=== PATIENT | male | born 1950 | race Hispanic/Latino ===

== ENCOUNTER 2019-06-12 17:17 | Emergency (ER) | payer OTHER ==
[2019-06-12 18:13] LABS: BASOPHILS % (AUTO) 0.3 % (0.0-5.0); EOSINOPHILS % (AUTO) 0.8 % (0.0-8.0); HEMATOCRIT 34.4 % (42-54); LYMPHOCYTES % (AUTO) 11.4 % (21.0-51.0); MEAN CORPUSCULAR HGB CONC 33.4 g/dL (32.0-36.0); MEAN CORPUSCULAR VOLUME 92.7 fL (79-99); MONOCYTES % (AUTO) 8.7 % (3.0-13.0); NEUTROPHILS % (AUTO) 78.3 % (40.0-77.0); PLATELET COUNT (AUTO) 272 K/uL (130-400); RED BLOOD CELL COUNT(AUTO) 3.71 MIL/uL (4.50-6.20); RED CELL DISTRIBUTION WIDTH 13.2 % (11.0-15.5); WHITE BLOOD COUNT (AUTO) 10.7 K/uL (4.8-10.8)
[2019-06-12 18:30] LABS: ALBUMIN 3.3 g/dL (3.5-5.0); BILIRUBIN,TOTAL 0.5 mg/dL (0.2-1.0); POTASSIUM 3.6 mmol/L (3.5-5.1); TOTAL PROTEIN, SERUM 6.8 g/dL (6.0-8.3)
[2019-06-12] MEDS ORDERED: SODIUM CHLORIDE 0.9% 1000ML 2,000 ML IV ONE (18:34)
[2019-06-12 18:37] LABS: APPEARANCE,URINE Cloudy (CLEAR); BILIRUBIN,URINE Negative (NEGATIVE); COLOR,URINE Yellow (YELLOW); GLUCOSE, URINE (UA) Negative (NEGATIVE); KETONES,URINE Negative (NEGATIVE); LEUKOCYTE ESTERASE ,URINE Trace (NEGATIVE); NITRATE,URINE Negative (NEGATIVE); OCCULT BLOOD,URINE Small (NEGATIVE); PROTEIN,URINE Negative (NEGATIVE)
[2019-06-12 18:43] LABS: CREATININE 0.9 mg/dL (0.5-1.5)
[2019-06-12 18:45] LABS: BACTERIA,URINE Rare /HPF (None Seen)
[2019-06-12 18:46] LABS: MUCUS,URINE Rare LPF (None Seen); SQUAMOUS EPITHELIAL CELL,UR 0-2 /HPF (0-2)
== END 2019-06-12 22:49 | disposition left against medical advice (07) ==
LOC: EDH 17:17
DX: I95.9 Hypotension, unspecified (principal); F03.90 Unspecified dementia, unspecified severity, without behavioral disturbance, psychotic disturbance, mood disturbance, and anxiety; Z88.0 Allergy status to penicillin; Z87.891 Personal history of nicotine dependence
CPT/HCPCS: 36415; 71045; 80053; 81001; 82550; 84484; 85025; 93005; 96360; 96361; 99285; J7030

== ENCOUNTER 2019-06-18 11:08 | Emergency (ER) | payer OTHER ==
[2019-06-18] MEDS ORDERED: SILVER SULFADIAZINE CREAM 50 GM TP ONE (11:44)
== END 2019-06-18 12:48 | disposition home or self-care (01) ==
LOC: EDH 11:08
DX: L89.893 Pressure ulcer of other site, stage 3 (principal); Z88.0 Allergy status to penicillin; Z72.0 Tobacco use

== ENCOUNTER 2019-07-13 14:36 | Inpatient (IN) | payer OTHER ==
[~2019-07-13] VITALS: Ht 157.5 cm; Wt 65.8 kg
[2019-07-13] MEDS: SODIUM CHLORIDE 0.9% 1000ML 1,000 ML IV SCH (03:40)
[2019-07-13] MEDS ORDERED: VANCOMYCIN 1GM+NS 250ML 250 ML IV SCH (15:37)
[2019-07-13] MEDS ORDERED: LEVOFLOXACIN 750 MG/D5W 150 ML 150 ML ONE (16:00)
[2019-07-13] MEDS ORDERED: SODIUM CHLORIDE 0.9% 1000ML 1,000 ML IV ONE (16:01)
[2019-07-13 16:14] LABS: BASOPHILS % (AUTO) 0.3 % (0.0-5.0); EOSINOPHILS % (AUTO) 0.4 % (0.0-8.0); LYMPHOCYTES % (AUTO) 8.8 % (21.0-51.0); MEAN CORPUSCULAR HGB CONC 32.9 g/dL (32.0-36.0); MEAN CORPUSCULAR VOLUME 94.3 fL (79-99); MONOCYTES % (AUTO) 6.9 % (3.0-13.0); NEUTROPHILS % (AUTO) 83.1 % (40.0-77.0); PLATELET COUNT (AUTO) 347 K/uL (130-400); RED BLOOD CELL COUNT(AUTO) 3.71 MIL/uL (4.50-6.20); RED CELL DISTRIBUTION WIDTH 12.7 % (11.0-15.5); WHITE BLOOD COUNT (AUTO) 14.3 K/uL (4.8-10.8)
[2019-07-13 16:28] LABS: INR 0.94 (0.85-1.15); PARTIAL THROMBOPLASTIN TIME 23.4 SEC (26.3-35.5); PROTHROMBIN TIME 10.2 SEC (9.6-11.6)
[2019-07-13 16:33] LABS: CREATININE 1.1 mg/dL (0.5-1.5); POTASSIUM 3.6 mmol/L (3.5-5.1)
[2019-07-13 16:37] LABS: BILIRUBIN,TOTAL 0.4 mg/dL (0.2-1.0); TOTAL PROTEIN, SERUM 6.6 g/dL (6.0-8.3)
[2019-07-13 16:38] LABS: B-TYPE NATRIURETIC PEPTIDE 41 pg/mL (0-100)
[2019-07-13] MEDS ORDERED: VANCOMYCIN 1GM+NS 250ML 250 ML IV ONE (16:56)
[2019-07-13] MEDS ORDERED: ONDANSETRON HCL 4 MG/2 ML VIAL IV PRN (19:00)
[2019-07-13] MEDS ORDERED: VANCOMYCIN PROTOCOL PER PHARMACY IV SCH (19:00)
[2019-07-13] MEDS ORDERED: NITROGLYCERIN 0.4 MG SL TAB SL PRN (19:00)
[2019-07-13] MEDS ORDERED: GLUCAGON 1MG KIT 1 MG ML IM PRN (19:00)
[2019-07-13] MEDS ORDERED: ACETAMINOPHEN 325 MG TAB PO PRN (19:00)
[2019-07-13] MEDS ORDERED: DEXTROSE 50%-WATER 50 ML DISP.SYRIN IV PRN (19:00)
[2019-07-13] MEDS ORDERED: SODIUM CHLORIDE 0.9% 1000ML 1,000 ML IV SCH (19:00)
[2019-07-13 19:26] LABS: APPEARANCE,URINE Clear (CLEAR); BILIRUBIN,URINE Negative (NEGATIVE); COLOR,URINE Yellow (YELLOW); GLUCOSE, URINE (UA) Negative (NEGATIVE); KETONES,URINE Negative (NEGATIVE); LEUKOCYTE ESTERASE ,URINE Negative (NEGATIVE); NITRATE,URINE Negative (NEGATIVE); OCCULT BLOOD,URINE Trace (NEGATIVE); PH,URINE 6.5 (5.0-8.0); PROTEIN,URINE Negative (NEGATIVE)
[2019-07-13 19:32] LABS: AMPHET/METH SCREEN,URINE NEGATIVE (NEGATIVE); BARBITURATE SCREEN, URINE NEGATIVE (NEGATIVE); BENZODIAZEPINES SCREEN,URINE NEGATIVE (NEGATIVE); CANNABINOID SCREEN,URINE NEGATIVE (NEGATIVE); COCAINE SCREEN,URINE NEGATIVE (NEGATIVE); OPIATE SCREEN,URINE NEGATIVE (NEGATIVE); PHENCYCLIDINE SCREEN,URINE NEGATIVE (NEGATIVE)
[2019-07-13 19:39] LABS: HEMOGLOBIN A1C 5.7 % (4.0-6.0)
[2019-07-13 19:43] LABS: BACTERIA,URINE Rare /HPF (None Seen); SQUAMOUS EPITHELIAL CELL,UR Rare /HPF (0-2); WBC,URINE 0-1 /HPF (0-1)
[2019-07-13 20:10] LABS: CREATINE KINASE, TOTAL 139 U/L (21-232); MYOGLOBIN 153 ng/mL (10-92); TROPONIN I < 0.04 ng/mL (0.00-0.06)
[2019-07-13] MEDS ORDERED: FAMOTIDINE/PF 20 MG/2 ML VIAL IV ONE (21:09)
[2019-07-13] MEDS: POTASSIUM CHLORIDE 20 MEQ ERTAB PO SCH (23:45)
[2019-07-14] MEDS ORDERED: POTASSIUM CHLORIDE 10% ELIXIR 20 MEQ/15 ML UDCUP ONE (02:55)
[2019-07-14 03:40] VITALS: BP 141/69
[2019-07-14] MEDS: SODIUM CHLORIDE 0.9% 1000ML 1,000 ML IV SCH (04:47)
[2019-07-14] MEDS: INSULIN HUMULIN R 100 UNIT/ML 3ML SQ SCH ×2 (06:25→21:00)
[2019-07-14] MEDS: VANCOMYCIN 1GM+NS 250ML 250 ML IV SCH ×2 (06:25→22:57)
--- NOTE | 2019-07-14 06:45 | NUR ---
PATIENT UPDATE Admitted a 68 yr old male for left leg ulcer. Pt apparently found by the police dept wandering at an [employer] store, reported missing by , brought over to ER and made aware. Wound cultured, antibiotics started . Pt very confused and disoriented, oriented x 1 only, reoriented x 3. IVF of NS at 100 cc/hr, at the bedside. Blood sugar was 58, orange juice given. Pt a high risk for fall, bed alarm on.
[2019-07-14 07:18] LABS: ALBUMIN 2.5 g/dL (3.5-5.0); BILIRUBIN,TOTAL 0.3 mg/dL (0.2-1.0); MAGNESIUM 1.6 mg/dL (1.80-2.40); TOTAL PROTEIN, SERUM 5.9 g/dL (6.0-8.3)
[2019-07-14 07:35] LABS: HEMATOCRIT 34.2 % (42-54); MEAN CORPUSCULAR HEMOGLOBIN 31.8 pg (27.0-33.0); MEAN CORPUSCULAR HGB CONC 33.3 g/dL (32.0-36.0); MEAN CORPUSCULAR VOLUME 95.3 fL (79-99); PLATELET COUNT (AUTO) 284 K/uL (130-400); RED BLOOD CELL COUNT(AUTO) 3.59 MIL/uL (4.50-6.20); RED CELL DISTRIBUTION WIDTH 12.9 % (11.0-15.5); WHITE BLOOD COUNT (AUTO) 10.9 K/uL (4.8-10.8)
[2019-07-14 08:00] VITALS: BP 133/57
--- NOTE | 2019-07-14 08:00 | NUR ---
AM SHIFT ASSESSMENT. BED ALARM ON PT. TRYING TO GET OUT OF BED, PER STATES HE IS VERY ACTIVWE AT HIME AND DOESN'T SIT STILL. DRESSING N PLACE TO LT. LOWER LEG. HAS AN ULCER AND STATES SHE CLEANS DAILY.
[2019-07-14 08:26] LABS: BASOPHILS % (MANUAL) 1 % (0-2); LYMPHOCYTES % (MANUAL) 7 % (22-44); MAN.DIFF COMMENT-IMPRESSION MANUAL DIFFERENTIAL; MONOCYTES % (MANUAL) 8 % (2-9); PLATELET MORPHOLOGY COMMENT ADEQUATE; SEGMENTED NEUTROPHILS % 84 % (40-70)
[2019-07-14] MEDS: LEVOFLOXACIN 500 MG/D5W 100 ML 100 ML IV SCH (09:52)
[2019-07-14] MEDS: FAMOTIDINE/PF 20 MG/2 ML VIAL IV SCH (09:52)
[2019-07-14] MEDS: ENOXAPARIN SODIUM 30 MG/0.3 ML SQ SCH (09:54)
[2019-07-14 12:00] VITALS: BP 137/48
[2019-07-14 16:00] VITALS: BP 126/55
--- NOTE | 2019-07-14 16:16 | NUR ---
RD NOTIFICATION LEFT LEG ULCER NOTED. PT HAS DIFFICULTIES CHEWING FOOD DUE TO MISSING TEETH, PER . LABS AND MEDS REVIEWED. PO INTAKE 50-75%. LBM: 07/[address] RECOMMENDS TO ADD MECHANICAL SOFT/CHOPPED DUE TO MISSING TEETH ADD SAEID AND PROMOD BID - AID WOUND HEALING OFFER ORAL SUPPLEMENTS NEEDED, ENSURE RECOMMEND 500MG VITAMIN C BID AND 220MG ZINC SULFATE QD FOR 14 DAYS - AID WOUND HEALING Addendum: 07/14/19 at [address] Amended: Links added.
--- NOTE | 2019-07-14 18:38 | NUR ---
[facility] CONSULT Patient assessed as ordered. Patient with wound to left lower leg/ankle anterior. [facility] recommendations submitted. Addendum: 07/14/19 at 1839 by KARTHIK CHAVEZ RN/ Amended: Links added.
--- NOTE | 2019-07-14 19:00 | NUR ---
PODIATRY IN TO SEE PT. CONTINUE WITH JUANA. THINKS HE PROBABLY NEEDS AMPUTATION.
[2019-07-14 20:00] VITALS: BP 128/52
[2019-07-14] MEDS: POTASSIUM CHLORIDE 20 MEQ ERTAB PO SCH (23:45)
[2019-07-15] VITALS: BP 134/66
[2019-07-15] MEDS: SODIUM CHLORIDE 0.9% 1000ML 1,000 ML IV SCH ×3 (00:47→20:47)
[2019-07-15 03:46] VITALS: BP 134/57
[2019-07-15] MEDS ORDERED: VANCOMYCIN 1GM+NS 250ML 250 ML IV SCH (04:00)
[2019-07-15] MEDS ORDERED: HONEY 1 APPL/ML TUBE TP SCH ×2 (04:45→20:15)
[2019-07-15] MEDS: INSULIN HUMULIN R 100 UNIT/ML 3ML SQ SCH ×4 (06:36→21:00)
[2019-07-15 08:00] VITALS: BP 151/54
--- NOTE | 2019-07-15 09:30 | NUR ---
CLEANED ULCER ON LT LOWER LG. APPLIED MEDIHONEY AND COVERED..
[2019-07-15] MEDS: VANCOMYCIN 1GM+NS 250ML 250 ML IV SCH ×2 (10:09→23:09)
[2019-07-15] MEDS: LEVOFLOXACIN 500 MG/D5W 100 ML 100 ML IV SCH (10:11)
[2019-07-15] MEDS: FAMOTIDINE/PF 20 MG/2 ML VIAL IV SCH (10:11)
[2019-07-15] MEDS: ENOXAPARIN SODIUM 30 MG/0.3 ML SQ SCH (10:12)
[2019-07-15] MEDS ORDERED: VANCOMYCIN PROTOCOL PER PHARMACY IV SCH (11:00)
[2019-07-15 12:00] VITALS: BP 145/72
--- NOTE | 2019-07-15 15:27 | NUR ---
HAVE HAD TO RESTART IV TWICE TODAY, KEEPS PULLING THEM OUT.
[2019-07-15 16:00] VITALS: BP 138/67
--- NOTE | 2019-07-15 16:08 | NUR ---
CM NOTE MEET WITH PATIENT IN ROOM. HISTORY OF DEMENTIA WITH INCREASE IN CONFUSION. PER LIFE PARTNER AT BEDSIDE, HAVE BEEN LIVING TOGETHER A COUPLE FOR MORE THAN 15 YEARS. PER LIFE PARTNER, PATIENT IS INDEPENDENT WITH ADLS, LIVES WITH SPOUSE AND HIS 1 ADULT SON, NO DME IN USE, NO PROVIDER OR HOME HEALTH IN USE, AND FEELS PATIENT CAN BE RETURNED HOME AFTER HOSPITAL DISCHARGE. PER LIFE PARTNER, PATIENT DOES NOT HAVE SOCIAL SECURITY NUMBER. SELF REFERRAL PACKET GIVEN TO LIFE PARTNER, VERBALIZED UNDERSTANDING OF INFORMATION. PER LIFE PARTNER, WILLING TO DO WOUND CARE AT HOME IF RECOMMENDED. CONVERSATIONS BETWEEN LIFE PARTNER AND I DISCUSSED WITH PRIMARY NURSE, AFRICA FOSS. PENDING MD CONSULT PENDING Addendum: 07/16/19 at 1612 by CHRISTIANO VILLARREAL RN CM Amended: Links added.
--- NOTE | 2019-07-15 16:57 | NUR ---
3RD. IV START TODAY. CONFUSED. AND REALLY DOESN'T UNDERSTAND HE IS IN HOSPITAL.
[2019-07-15 20:00] VITALS: BP 131/63
[2019-07-15] MEDS ORDERED: LORAZEPAM 2 MG/ML 1 ML VIAL IVP ONE (20:00)
[2019-07-15] MEDS ORDERED: LORAZEPAM 2 MG/ML 1 ML VIAL ONE (20:04)
--- NOTE | 2019-07-15 20:37 | NUR ---
PERSISTENT AGITATION Pt continues to be restless in the bed, still without any iv access. KATE Escamilla WHEEL SHOP SUPERVISOR called for orders, Lorazepam 0.5 mg given slow iv push for anxiety after a piv was started on the left wrist. Pt now with an assigned 1:1, pulled piv out 3x fr the previous shift. Pending consult with Dr. Kemp regarding the lt ankle ulceration.
[2019-07-15] MEDS: POTASSIUM CHLORIDE 20 MEQ ERTAB PO SCH (22:00)
--- NOTE | 2019-07-15 23:00 | NUR ---
MD VISIT Dr. Kemp here on rounds, updated with the pt's overall status, chart reviewed. Left ankle ulcer seen, stated that it's a chronic ulcer. Pt was seen in [facility] [place] by Dr. Trejo in April. No new orders made. Vanco trough at 4.3, result faxed to Phamacy , continues with the 1gm ivpb q 12 hrs for now, will follow up with Pharmacy in the am.
[2019-07-16] VITALS (7 sets, daily range): BP systolic 100–147; BP diastolic 54–80
[2019-07-16] MEDS: SODIUM CHLORIDE 0.9% 1000ML 1,000 ML IV SCH ×3 (00:12→12:57)
[2019-07-16] MEDS ORDERED: COMPOUND IV REFRIGERATED 1 EACH IVSOLN MISC PRN (06:30)
[2019-07-16] MEDS: INSULIN HUMULIN R 100 UNIT/ML 3ML SQ SCH ×3 (07:30→21:00)
[2019-07-16] MEDS: FAMOTIDINE/PF 20 MG/2 ML VIAL IV SCH (10:50)
[2019-07-16] MEDS: LEVOFLOXACIN 500 MG/D5W 100 ML 100 ML IV SCH (10:50)
[2019-07-16] MEDS: VANCOMYCIN 1.25 GM in SODIUM CHLORIDE 0.9% 250 ML IV SCH ×2 (10:50→20:42)
[2019-07-16] MEDS: HONEY 1 APPL/ML TUBE TP SCH (10:51)
[2019-07-16] MEDS: ENOXAPARIN SODIUM 30 MG/0.3 ML SQ SCH (10:52)
[2019-07-16] MEDS: FLUCONAZOLE 100 MG TAB PO SCH (12:54)
[2019-07-16] MEDS: POTASSIUM CHLORIDE 20 MEQ ERTAB PO SCH (19:28)
[2019-07-16] MEDS: DIPHENHYDRAMINE HCL 25 MG CAPSULE PO PRN (20:42)
[2019-07-17 03:00] VITALS: BP 139/65
[2019-07-17] MEDS: DIPHENHYDRAMINE HCL 25 MG CAPSULE PO PRN ×2 (05:25→21:40)
[2019-07-17 06:07] LABS: BASOPHILS % (AUTO) 0.4 % (0.0-5.0); EOSINOPHILS % (AUTO) 0.9 % (0.0-8.0); HEMATOCRIT 37.5 % (42-54); LYMPHOCYTES % (AUTO) 11.6 % (21.0-51.0); MEAN CORPUSCULAR HEMOGLOBIN 31.4 pg (27.0-33.0); MEAN CORPUSCULAR HGB CONC 33.3 g/dL (32.0-36.0); MEAN CORPUSCULAR VOLUME 94.2 fL (79-99); NEUTROPHILS % (AUTO) 76.7 % (40.0-77.0); PLATELET COUNT (AUTO) 309 K/uL (130-400); RED BLOOD CELL COUNT(AUTO) 3.98 MIL/uL (4.50-6.20); RED CELL DISTRIBUTION WIDTH 12.1 % (11.0-15.5); WHITE BLOOD COUNT (AUTO) 8.5 K/uL (4.8-10.8)
[2019-07-17] MEDS: INSULIN HUMULIN R 100 UNIT/ML 3ML SQ SCH ×4 (06:15→20:53)
[2019-07-17 06:33] LABS: ALBUMIN 2.6 g/dL (3.5-5.0); BILIRUBIN,TOTAL 0.4 mg/dL (0.2-1.0); CREATININE 0.9 mg/dL (0.5-1.5); POTASSIUM 3.4 mmol/L (3.5-5.1); TOTAL PROTEIN, SERUM 6.5 g/dL (6.0-8.3)
[2019-07-17 08:00] VITALS: BP 110/55
--- NOTE | 2019-07-17 11:12 | NUR ---
AMPUTATION Phoned as discussed with Dr. Carrasquillo. Stated patient does want the amputation and she agrees as well. Dr. Carrasquillo aware.
[2019-07-17 12:00] VITALS: BP 88/57
[2019-07-17] MEDS: FAMOTIDINE/PF 20 MG/2 ML VIAL IV SCH (12:21)
[2019-07-17] MEDS: LEVOFLOXACIN 500 MG/D5W 100 ML 100 ML IV SCH (12:21)
[2019-07-17] MEDS: VANCOMYCIN 1.25 GM in SODIUM CHLORIDE 0.9% 250 ML IV SCH ×2 (12:22→22:46)
[2019-07-17] MEDS: ACETAMINOPHEN 325 MG TAB PO PRN ×2 (12:23→15:15)
[2019-07-17] MEDS: FLUCONAZOLE 100 MG TAB PO SCH (12:23)
[2019-07-17] MEDS: HONEY 1 APPL/ML TUBE TP SCH (12:25)
[2019-07-17] MEDS: ENOXAPARIN SODIUM 30 MG/0.3 ML SQ SCH (12:25)
[2019-07-17] MEDS: SODIUM CHLORIDE 0.9% 1000ML 1,000 ML IV SCH ×3 (12:26→22:47)
[2019-07-17 16:00] VITALS: BP 98/55
[2019-07-17 21:46] VITALS: BP 95/66
[2019-07-17 23:49] VITALS: BP 106/68
[2019-07-18 03:57] VITALS: BP 110/71
[2019-07-18 05:18] LABS: BASOPHILS % (AUTO) 0.3 % (0.0-5.0); EOSINOPHILS % (AUTO) 1.2 % (0.0-8.0); HEMATOCRIT 35.3 % (42-54); LYMPHOCYTES % (AUTO) 13.4 % (21.0-51.0); MEAN CORPUSCULAR HEMOGLOBIN 31.1 pg (27.0-33.0); MEAN CORPUSCULAR HGB CONC 33.4 g/dL (32.0-36.0); MEAN CORPUSCULAR VOLUME 93.1 fL (79-99); MONOCYTES % (AUTO) 10.1 % (3.0-13.0); NEUTROPHILS % (AUTO) 74.7 % (40.0-77.0); PLATELET COUNT (AUTO) 320 K/uL (130-400); RED BLOOD CELL COUNT(AUTO) 3.79 MIL/uL (4.50-6.20); WHITE BLOOD COUNT (AUTO) 8.9 K/uL (4.8-10.8)
[2019-07-18 05:35] LABS: ALBUMIN 2.5 g/dL (3.5-5.0); BILIRUBIN,TOTAL 0.5 mg/dL (0.2-1.0); CREATININE 0.9 mg/dL (0.5-1.5); POTASSIUM 3.1 mmol/L (3.5-5.1); TOTAL PROTEIN, SERUM 6.3 g/dL (6.0-8.3)
[2019-07-18] MEDS: INSULIN HUMULIN R 100 UNIT/ML 3ML SQ SCH ×4 (06:53→21:00)
[2019-07-18 08:00] VITALS: BP 97/69
[2019-07-18] MEDS: SODIUM CHLORIDE 0.9% 1000ML 1,000 ML IV SCH ×2 (08:47→18:10)
[2019-07-18] MEDS: HONEY 1 APPL/ML TUBE TP SCH (09:00)
[2019-07-18] MEDS: FAMOTIDINE/PF 20 MG/2 ML VIAL IV SCH (09:13)
[2019-07-18] MEDS: LEVOFLOXACIN 500 MG/D5W 100 ML 100 ML IV SCH (09:14)
[2019-07-18] MEDS: VANCOMYCIN 1.25 GM in SODIUM CHLORIDE 0.9% 250 ML IV SCH ×2 (09:14→20:29)
[2019-07-18] MEDS: ENOXAPARIN SODIUM 30 MG/0.3 ML SQ SCH (09:14)
--- NOTE | 2019-07-18 09:45 | NUR ---
DISCUSSED PLAN OF CARE WITH STAFF ADVISED THAT AN AMPUTATION WAS PLANNED FOR TOMORROW OR THE NEXT DAY CM TO FOLLOW FOR AFTERCARE NEEDS Addendum: 07/18/19 at 1437 by TREVA BILL RN CM Amended: Links added.
[2019-07-18 11:38] VITALS: BP 91/59
[2019-07-18] MEDS: FLUCONAZOLE 100 MG TAB PO SCH (12:29)
[2019-07-18] MEDS ORDERED: POTASSIUM CHLORIDE 20MEQ/100ML 100 ML IV PRN (13:00)
[2019-07-18] MEDS ORDERED: LIDOCAINE HCL-MPF 1% 2ML VIAL IV PRN (13:00)
--- NOTE | 2019-07-18 13:55 | NUR ---
DR GALAN/CONSULT PAGED AND SPOKE TO DR GALAN REGARDING GEN SURGERY CONSULT. STATED SHE WILL LOOK AT HIS CHART
[2019-07-18 16:00] VITALS: BP 91/65
[2019-07-18 20:00] VITALS: BP 96/71
[2019-07-18 23:22] VITALS: BP 105/64
[2019-07-19] MEDS: DIPHENHYDRAMINE HCL 25 MG CAPSULE PO PRN ×2 (00:44→22:55)
[2019-07-19 03:25] VITALS: BP 98/65
[2019-07-19 05:36] LABS: BASOPHILS % (AUTO) 0.3 % (0.0-5.0); EOSINOPHILS % (AUTO) 1.3 % (0.0-8.0); HEMATOCRIT 37.7 % (42-54); LYMPHOCYTES % (AUTO) 12.7 % (21.0-51.0); MEAN CORPUSCULAR HEMOGLOBIN 30.5 pg (27.0-33.0); MEAN CORPUSCULAR HGB CONC 32.9 g/dL (32.0-36.0); MEAN CORPUSCULAR VOLUME 92.9 fL (79-99); NEUTROPHILS % (AUTO) 76.2 % (40.0-77.0); PLATELET COUNT (AUTO) 313 K/uL (130-400); RED BLOOD CELL COUNT(AUTO) 4.06 MIL/uL (4.50-6.20); RED CELL DISTRIBUTION WIDTH 12.1 % (11.0-15.5); WHITE BLOOD COUNT (AUTO) 10.2 K/uL (4.8-10.8)
[2019-07-19 05:49] LABS: ALBUMIN 2.6 g/dL (3.5-5.0); BILIRUBIN,TOTAL 0.5 mg/dL (0.2-1.0); CREATININE 0.9 mg/dL (0.5-1.5); POTASSIUM 3.3 mmol/L (3.5-5.1); TOTAL PROTEIN, SERUM 6.8 g/dL (6.0-8.3)
[2019-07-19] MEDS: INSULIN HUMULIN R 100 UNIT/ML 3ML SQ SCH ×4 (06:55→21:00)
[2019-07-19] MEDS: FAMOTIDINE/PF 20 MG/2 ML VIAL IV SCH (10:08)
[2019-07-19] MEDS: LEVOFLOXACIN 500 MG/D5W 100 ML 100 ML IV SCH (10:08)
[2019-07-19] MEDS: VANCOMYCIN 1.25 GM in SODIUM CHLORIDE 0.9% 250 ML IV SCH (10:08)
[2019-07-19] MEDS: ENOXAPARIN SODIUM 30 MG/0.3 ML SQ SCH (10:09)
[2019-07-19] MEDS: HONEY 1 APPL/ML TUBE TP SCH (10:18)
[2019-07-19] MEDS: SODIUM CHLORIDE 0.9% 1000ML 1,000 ML IV SCH ×2 (12:28→14:47)
[2019-07-19] MEDS: FLUCONAZOLE 100 MG TAB PO SCH (12:28)
[2019-07-19 20:00] VITALS: BP 104/68
[2019-07-19] MEDS: ATORVASTATIN CALCIUM 40 MG TABLET PO SCH (20:47)
[2019-07-19] MEDS: VANCOMYCIN 1GM+NS 250ML 250 ML IV SCH (21:44)
[2019-07-20] VITALS: BP 133/61
[2019-07-20] MEDS: SODIUM CHLORIDE 0.9% 1000ML 1,000 ML IV SCH ×3 (00:47→20:47)
[2019-07-20 04:00] VITALS: BP 116/59
[2019-07-20 05:05] LABS: BASOPHILS % (AUTO) 0.3 % (0.0-5.0); EOSINOPHILS % (AUTO) 0.8 % (0.0-8.0); HEMATOCRIT 37.6 % (42-54); LYMPHOCYTES % (AUTO) 11.5 % (21.0-51.0); MEAN CORPUSCULAR HEMOGLOBIN 31.1 pg (27.0-33.0); MEAN CORPUSCULAR HGB CONC 33.5 g/dL (32.0-36.0); MEAN CORPUSCULAR VOLUME 92.8 fL (79-99); MONOCYTES % (AUTO) 8.7 % (3.0-13.0); NEUTROPHILS % (AUTO) 78.1 % (40.0-77.0); PLATELET COUNT (AUTO) 325 K/uL (130-400); RED BLOOD CELL COUNT(AUTO) 4.05 MIL/uL (4.50-6.20); WHITE BLOOD COUNT (AUTO) 10.8 K/uL (4.8-10.8)
[2019-07-20 05:31] LABS: MAGNESIUM 1.8 mg/dL (1.80-2.40); POTASSIUM 3.3 mmol/L (3.5-5.1)
[2019-07-20] MEDS: INSULIN HUMULIN R 100 UNIT/ML 3ML SQ SCH ×4 (06:22→21:00)
[2019-07-20] MEDS: MAGNESIUM 2GM PREMIX 50ML 50 ML IV PRN (07:11)
[2019-07-20 07:30] VITALS: BP 111/52
[2019-07-20] MEDS: HONEY 1 APPL/ML TUBE TP SCH (09:00)
[2019-07-20] MEDS: VANCOMYCIN 1GM+NS 250ML 250 ML IV SCH ×2 (10:12→21:00)
[2019-07-20] MEDS: LEVOFLOXACIN 500 MG/D5W 100 ML 100 ML IV SCH (10:12)
[2019-07-20] MEDS: FAMOTIDINE/PF 20 MG/2 ML VIAL IV SCH (10:12)
[2019-07-20] MEDS: ASPIRIN 81MG TAB.CHEW PO SCH (10:13)
[2019-07-20] MEDS: POTASSIUM CHLORIDE 20 MEQ ERTAB PO PRN ×2 (10:13→21:00)
[2019-07-20] MEDS: ENOXAPARIN SODIUM 30 MG/0.3 ML SQ SCH (10:14)
[2019-07-20 11:00] VITALS: BP 108/54
[2019-07-20] MEDS: FLUCONAZOLE 100 MG TAB PO SCH (12:43)
--- NOTE | 2019-07-20 13:30 | NUR ---
DR PAT STEWART CAME IN TO SEE PATIENT, STATED THAT HE WILL PERSONALLY CALL DR GALAN AFTER HE HAS 2D ECHO RESULTS.
--- NOTE | 2019-07-20 13:46 | NUR ---
RD Follow up Pt is tolerating current diet. MD will evaluate for possible amputation, family agreed. General surgery has been consulted. Left leg open wound, ulcer noted. Labs and meds reviewed. Po intake 75-100%. RD recommends 500mg Vitamin C BID - aid wound healing Recommend 220mg Zinc sulfate QD for 14 days - aid wound healing Monitor po intake and tolerance Encourage pt to consume oral supplements - aid wound healing
[2019-07-20 20:00] VITALS: BP 91/60
[2019-07-20] MEDS: ATORVASTATIN CALCIUM 40 MG TABLET PO SCH (21:00)
[2019-07-20 23:00] VITALS: BP 102/70
[2019-07-21] MEDS: DIPHENHYDRAMINE HCL 25 MG CAPSULE PO PRN (00:40)
[2019-07-21] MEDS ORDERED: LORAZEPAM 2 MG/ML 1 ML VIAL ONE (02:43)
[2019-07-21] MEDS ORDERED: LORAZEPAM 2 MG/ML 1 ML VIAL IVP PRN (02:45)
[2019-07-21 03:00] VITALS: BP 91/58
[2019-07-21] MEDS: INSULIN HUMULIN R 100 UNIT/ML 3ML SQ SCH ×4 (06:18→21:00)
[2019-07-21] MEDS: SODIUM CHLORIDE 0.9% 1000ML 1,000 ML IV SCH ×2 (06:19→16:47)
[2019-07-21 06:21] LABS: POTASSIUM 3.7 mmol/L (3.5-5.1)
[2019-07-21] MEDS: LEVOFLOXACIN 500 MG/D5W 100 ML 100 ML IV SCH (09:11)
[2019-07-21] MEDS: FAMOTIDINE/PF 20 MG/2 ML VIAL IV SCH (09:11)
[2019-07-21] MEDS: ENOXAPARIN SODIUM 30 MG/0.3 ML SQ SCH (09:12)
[2019-07-21] MEDS: ASPIRIN 81MG TAB.CHEW PO SCH (09:12)
[2019-07-21] MEDS: HONEY 1 APPL/ML TUBE TP SCH (09:13)
[2019-07-21] MEDS: VANCOMYCIN 1GM+NS 250ML 250 ML IV SCH ×2 (10:40→22:05)
[2019-07-21] MEDS: FLUCONAZOLE 100 MG TAB PO SCH (12:37)
--- NOTE | 2019-07-21 18:54 | NUR ---
notified dr elena of the consult.
[2019-07-21 20:00] VITALS: BP 97/49
[2019-07-21] MEDS: MEMANTINE HCL 5 MG TABLET PO SCH (22:04)
[2019-07-21] MEDS: RISPERIDONE 0.5 MG TABLET PO SCH (22:05)
[2019-07-21] MEDS: ATORVASTATIN CALCIUM 40 MG TABLET PO SCH (22:05)
[2019-07-21 23:27] VITALS: BP 148/63
[2019-07-22] MEDS: DIPHENHYDRAMINE HCL 25 MG CAPSULE PO PRN (00:55)
--- NOTE | 2019-07-22 01:11 | NUR ---
PAGED ABENA NÚÑEZ PAGED D/T PATIENT WITH INCREASED AGITATION AND AGGRESSIVENESS. BOTTLED BEVERAGE INSPECTOR ORDERED A ONE TIME DOSE OF LORAZEPAM-SEE MAR ORDERS. ORDERS ENTERED INTO [email or web address].
[2019-07-22] MEDS ORDERED: LORAZEPAM 2 MG/ML 1 ML VIAL IVP PRN (01:30)
[2019-07-22] MEDS: SODIUM CHLORIDE 0.9% 1000ML 1,000 ML IV SCH (02:21)
[2019-07-22 04:00] VITALS: BP 106/51
[2019-07-22] MEDS: INSULIN HUMULIN R 100 UNIT/ML 3ML SQ SCH ×3 (05:48→21:00)
[2019-07-22 08:00] VITALS: BP 111/73
--- NOTE | 2019-07-22 09:02 | NUR ---
WOUND CARE LEFT ANKLE WOUND CARE PROVIDE PER ORDER. 4X4 GAUZE PADS, WRAPPED WITH KERLIX. PATIENT ASLEEP DURING TREATMENT. NO DISCOMFORT OBSERVED. SITTER AT BEDSIDE, BED LOCKED IN LOWEST POSITION.
[2019-07-22] MEDS: VANCOMYCIN 1GM+NS 250ML 250 ML IV SCH ×2 (09:33→21:18)
[2019-07-22] MEDS: LEVOFLOXACIN 500 MG/D5W 100 ML 100 ML IV SCH (09:33)
[2019-07-22] MEDS: FLUOXETINE HCL 10 MG CAPSULE PO SCH (09:34)
[2019-07-22] MEDS: RISPERIDONE 0.5 MG TABLET PO SCH ×2 (09:34→21:18)
[2019-07-22] MEDS: FAMOTIDINE/PF 20 MG/2 ML VIAL IV SCH (09:34)
[2019-07-22] MEDS: ASPIRIN 81MG TAB.CHEW PO SCH (09:34)
[2019-07-22] MEDS: ENOXAPARIN SODIUM 30 MG/0.3 ML SQ SCH (09:35)
[2019-07-22] MEDS: HONEY 1 APPL/ML TUBE TP SCH (10:05)
[2019-07-22 10:24] LABS: THYROID STIMULATING HORMONE 2.11 uIU/mL (0.36-3.74)
[2019-07-22 12:00] VITALS: BP 95/55
[2019-07-22] MEDS: FLUCONAZOLE 100 MG TAB PO SCH (12:46)
[2019-07-22 17:23] VITALS: BP 119/67
[2019-07-22 20:00] VITALS: BP_SYST 161; BP_SYST 98; BP_DIAS 69; BP_DIAS 70
[2019-07-22] MEDS: MEMANTINE HCL 5 MG TABLET PO SCH (21:18)
[2019-07-22] MEDS: ATORVASTATIN CALCIUM 40 MG TABLET PO SCH (21:18)
[2019-07-23] VITALS (7 sets, daily range): BP systolic 81–125; BP diastolic 60–74
[2019-07-23 05:03] LABS: BASOPHILS % (AUTO) 0.3 % (0.0-5.0); EOSINOPHILS % (AUTO) 0.7 % (0.0-8.0); HEMATOCRIT 39.6 % (42-54); LYMPHOCYTES % (AUTO) 11.2 % (21.0-51.0); MEAN CORPUSCULAR HEMOGLOBIN 30.3 pg (27.0-33.0); MEAN CORPUSCULAR HGB CONC 32.1 g/dL (32.0-36.0); MEAN CORPUSCULAR VOLUME 94.5 fL (79-99); MONOCYTES % (AUTO) 8.5 % (3.0-13.0); NEUTROPHILS % (AUTO) 78.9 % (40.0-77.0); PLATELET COUNT (AUTO) 283 K/uL (130-400); RED BLOOD CELL COUNT(AUTO) 4.19 MIL/uL (4.50-6.20); WHITE BLOOD COUNT (AUTO) 9.7 K/uL (4.8-10.8)
[2019-07-23 05:15] LABS: CREATININE 0.9 mg/dL (0.5-1.5); POTASSIUM 3.6 mmol/L (3.5-5.1)
[2019-07-23] MEDS: INSULIN HUMULIN R 100 UNIT/ML 3ML SQ SCH ×4 (06:08→21:00)
[2019-07-23] MEDS: HONEY 1 APPL/ML TUBE TP SCH (06:50)
[2019-07-23] MEDS: VANCOMYCIN 1GM+NS 250ML 250 ML IV SCH (09:00)
[2019-07-23] MEDS: LEVOFLOXACIN 500 MG/D5W 100 ML 100 ML IV SCH (11:29)
[2019-07-23] MEDS: RISPERIDONE 1 MG TABLET PO SCH (11:30)
[2019-07-23] MEDS: FAMOTIDINE/PF 20 MG/2 ML VIAL IV SCH (11:30)
[2019-07-23] MEDS: ENOXAPARIN SODIUM 30 MG/0.3 ML SQ SCH (11:30)
[2019-07-23] MEDS: ASPIRIN 81MG TAB.CHEW PO SCH (11:31)
[2019-07-23] MEDS: FLUOXETINE HCL 10 MG CAPSULE PO SCH (11:31)
[2019-07-23] MEDS: FLUCONAZOLE 100 MG TAB PO SCH (12:30)
[2019-07-23] MEDS: LORAZEPAM 2 MG/ML 1 ML VIAL IM PRN (12:37)
[2019-07-23] MEDS ORDERED: PHARMACY COMMUNICATION MISC SCH (15:30)
[2019-07-23] MEDS: CHLORDIAZEPOXIDE HCL 25 MG CAP PO SCH ×2 (16:58→22:52)
[2019-07-23] MEDS ORDERED: TRAMADOL HCL 50 MG TABLET PO PRN (18:15)
[2019-07-23] MEDS: ATORVASTATIN CALCIUM 40 MG TABLET PO SCH (22:52)
[2019-07-23] MEDS: RISPERIDONE 0.5 MG TABLET PO SCH (22:52)
[2019-07-23] MEDS: MEMANTINE HCL 5 MG TABLET PO SCH (22:52)
[2019-07-24 04:24] VITALS: BP 121/73
[2019-07-24] MEDS: INSULIN HUMULIN R 100 UNIT/ML 3ML SQ SCH ×4 (06:56→21:00)
[2019-07-24 08:00] VITALS: BP 130/67
[2019-07-24] MEDS: RISPERIDONE 1 MG TABLET PO SCH (08:44)
[2019-07-24] MEDS: THIAMINE HCL 100 MG TABLET PO SCH (08:44)
[2019-07-24] MEDS: CHLORDIAZEPOXIDE HCL 25 MG CAP PO SCH ×3 (08:44→20:10)
[2019-07-24] MEDS: ASPIRIN 81MG TAB.CHEW PO SCH (08:44)
[2019-07-24] MEDS: FAMOTIDINE/PF 20 MG/2 ML VIAL IV SCH (08:45)
[2019-07-24] MEDS: FOLIC ACID 1 MG TABLET PO SCH (08:45)
[2019-07-24] MEDS: FLUOXETINE HCL 10 MG CAPSULE PO SCH (08:45)
[2019-07-24] MEDS: ENOXAPARIN SODIUM 30 MG/0.3 ML SQ SCH (08:46)
[2019-07-24] MEDS: HONEY 1 APPL/ML TUBE TP SCH (08:46)
[2019-07-24 11:00] VITALS: BP 105/71
[2019-07-24] MEDS: FLUCONAZOLE 100 MG TAB PO SCH (13:06)
[2019-07-24 18:35] VITALS: BP 140/68
[2019-07-24 20:00] VITALS: BP 115/75
[2019-07-24] MEDS: MEMANTINE HCL 5 MG TABLET PO SCH (20:10)
[2019-07-24] MEDS: RISPERIDONE 0.5 MG TABLET PO SCH (20:10)
[2019-07-24] MEDS: ATORVASTATIN CALCIUM 40 MG TABLET PO SCH (20:10)
[2019-07-24] MEDS: VANCOMYCIN 1GM+NS 250ML 250 ML IV SCH (20:11)
[2019-07-25] VITALS (7 sets, daily range): BP systolic 83–156; BP diastolic 65–93
[2019-07-25] MEDS: LORAZEPAM 2 MG/ML 1 ML VIAL IM PRN ×2 (00:46→22:51)
--- NOTE | 2019-07-25 00:51 | NUR ---
tachycardia Informed division human resources manager hospitalist KATE KRAFT that patients heart rate was 124, BP 112/73 patient states that he feels fine just wanting to get out of here. call or contact centre coach hospitalist stated to give ativan that is ordered for patient, and that he would place orders for some am labs.
[2019-07-25] MEDS: ACETAMINOPHEN 325 MG TAB PO PRN (04:27)
[2019-07-25] MEDS: INSULIN HUMULIN R 100 UNIT/ML 3ML SQ SCH ×4 (05:56→20:06)
[2019-07-25 06:07] LABS: BASOPHILS % (AUTO) 0.4 % (0.0-5.0); EOSINOPHILS % (AUTO) 0.2 % (0.0-8.0); HEMATOCRIT 39.7 % (42-54); MEAN CORPUSCULAR HEMOGLOBIN 30.8 pg (27.0-33.0); MEAN CORPUSCULAR VOLUME 93.2 fL (79-99); MONOCYTES % (AUTO) 7.4 % (3.0-13.0); NEUTROPHILS % (AUTO) 85.5 % (40.0-77.0); PLATELET COUNT (AUTO) 380 K/uL (130-400); RED BLOOD CELL COUNT(AUTO) 4.26 MIL/uL (4.50-6.20); RED CELL DISTRIBUTION WIDTH 11.9 % (11.0-15.5); WHITE BLOOD COUNT (AUTO) 13.1 K/uL (4.8-10.8)
[2019-07-25 06:21] LABS: CREATININE 1.1 mg/dL (0.5-1.5); POTASSIUM 3.6 mmol/L (3.5-5.1)
[2019-07-25] MEDS: CHLORDIAZEPOXIDE HCL 25 MG CAP PO SCH (09:00)
[2019-07-25] MEDS: HONEY 1 APPL/ML TUBE TP SCH (09:00)
[2019-07-25] MEDS: RISPERIDONE 1 MG TABLET PO SCH (09:00)
[2019-07-25] MEDS: FLUOXETINE HCL 10 MG CAPSULE PO SCH (09:00)
[2019-07-25] MEDS: FAMOTIDINE/PF 20 MG/2 ML VIAL IV SCH (11:54)
[2019-07-25] MEDS: LACTATED RINGERS 1000ML 1,000 ML IV SCH ×2 (11:54→21:42)
[2019-07-25] MEDS: THIAMINE HCL 100 MG TABLET PO SCH (12:01)
[2019-07-25] MEDS: VANCOMYCIN 1GM+NS 250ML 250 ML IV SCH (12:01)
[2019-07-25] MEDS: FOLIC ACID 1 MG TABLET PO SCH (12:01)
[2019-07-25] MEDS: ENOXAPARIN SODIUM 30 MG/0.3 ML SQ SCH (12:02)
[2019-07-25] MEDS: ASPIRIN 81MG TAB.CHEW PO SCH (12:02)
[2019-07-25 12:30] LABS: APPEARANCE,URINE Clear (CLEAR); BILIRUBIN,URINE Negative (NEGATIVE); COLOR,URINE Dark Yellow (YELLOW); GLUCOSE, URINE (UA) Negative (NEGATIVE); KETONES,URINE Negative (NEGATIVE); LEUKOCYTE ESTERASE ,URINE Negative (NEGATIVE); NITRATE,URINE Negative (NEGATIVE); OCCULT BLOOD,URINE Moderate (NEGATIVE); PH,URINE 5.5 (5.0-8.0); PROTEIN,URINE Negative (NEGATIVE)
[2019-07-25 12:41] LABS: BACTERIA,URINE Few /HPF (None Seen); WBC,URINE 0-1 /HPF (0-1)
[2019-07-25] MEDS ORDERED: CHLORDIAZEPOXIDE HCL 25 MG CAP PO PRN (14:30)
[2019-07-25] MEDS: FLUCONAZOLE 100 MG TAB PO SCH (14:32)
[2019-07-25] MEDS ORDERED: COMPOUND IV REFRIGERATED 1 EACH IVSOLN MISC PRN (18:15)
[2019-07-25] MEDS: POTASSIUM CHLORIDE 20 MEQ ERTAB PO PRN (20:20)
[2019-07-25] MEDS: ATORVASTATIN CALCIUM 40 MG TABLET PO SCH (20:20)
[2019-07-25] MEDS: MEMANTINE HCL 5 MG TABLET PO SCH (20:21)
[2019-07-25] MEDS: RISPERIDONE 0.5 MG TABLET PO SCH (20:21)
[2019-07-25] MEDS: VANCOMYCIN 750MG + NS 250 ML IV SCH ×2 (20:24)
[2019-07-26 03:05] VITALS: BP 130/41
[2019-07-26 05:16] LABS: BASOPHILS % (AUTO) 0.3 % (0.0-5.0); EOSINOPHILS % (AUTO) 0.4 % (0.0-8.0); HEMATOCRIT 36.8 % (42-54); LYMPHOCYTES % (AUTO) 8.1 % (21.0-51.0); MEAN CORPUSCULAR HEMOGLOBIN 31.1 pg (27.0-33.0); MEAN CORPUSCULAR HGB CONC 32.6 g/dL (32.0-36.0); MEAN CORPUSCULAR VOLUME 95.3 fL (79-99); MONOCYTES % (AUTO) 8.3 % (3.0-13.0); NEUTROPHILS % (AUTO) 82.3 % (40.0-77.0); PLATELET COUNT (AUTO) 323 K/uL (130-400); RED BLOOD CELL COUNT(AUTO) 3.86 MIL/uL (4.50-6.20); RED CELL DISTRIBUTION WIDTH 11.8 % (11.0-15.5); WHITE BLOOD COUNT (AUTO) 10.8 K/uL (4.8-10.8)
[2019-07-26] MEDS: INSULIN HUMULIN R 100 UNIT/ML 3ML SQ SCH ×4 (05:24→19:59)
[2019-07-26 05:33] LABS: CREATININE 0.9 mg/dL (0.5-1.5)
[2019-07-26] MEDS: VANCOMYCIN 750MG + NS 250 ML IV SCH ×4 (06:43→17:52)
[2019-07-26] MEDS ORDERED: CHLORDIAZEPOXIDE HCL 25 MG CAP PO SCH (09:00)
[2019-07-26] MEDS: RISPERIDONE 1 MG TABLET PO SCH (09:00)
[2019-07-26] MEDS: HONEY 1 APPL/ML TUBE TP SCH (09:00)
[2019-07-26] MEDS: THIAMINE HCL 100 MG TABLET PO SCH (11:01)
[2019-07-26] MEDS: ASPIRIN 81MG TAB.CHEW PO SCH (11:02)
[2019-07-26] MEDS: FOLIC ACID 1 MG TABLET PO SCH (11:02)
[2019-07-26] MEDS: FLUCONAZOLE 100 MG TAB PO SCH (11:03)
[2019-07-26] MEDS: FLUOXETINE HCL 10 MG CAPSULE PO SCH (11:03)
[2019-07-26] MEDS: FAMOTIDINE/PF 20 MG/2 ML VIAL IV SCH (11:04)
[2019-07-26] MEDS: LACTATED RINGERS 1000ML 1,000 ML IV SCH ×2 (11:09→23:36)
[2019-07-26] MEDS: ENOXAPARIN SODIUM 30 MG/0.3 ML SQ SCH (11:10)
--- NOTE | 2019-07-26 15:17 | NUR ---
RD FOLLOW UP Diet: heart healthy, soft/chopped, Jayme and promod BID. PO intake 100%. LBM: 07/23 noted. Labs and meds reviewed. Considering AKA however, pt not a good candidate for any intervention due to him still being delirium and confused. RD recommends to continue current diet Monitor po intake and tolerance
[2019-07-26 19:00] VITALS: BP 110/67
--- NOTE | 2019-07-26 20:00 | NUR ---
BRAYAN MACK ROUNDED: Seen and examined pt with an order to change Risperdal to Remeron 7.5 mg po at HS. - carried out.
[2019-07-26] MEDS: MIRTAZAPINE 15 MG TABLET PO SCH (20:51)
[2019-07-26] MEDS: ATORVASTATIN CALCIUM 40 MG TABLET PO SCH (20:51)
[2019-07-26] MEDS: MEMANTINE HCL 5 MG TABLET PO SCH (20:51)
[2019-07-27] VITALS: BP 94/67
[2019-07-27 03:32] VITALS: BP 101/71
[2019-07-27 05:17] LABS: BASOPHILS % (AUTO) 0.4 % (0.0-5.0); EOSINOPHILS % (AUTO) 0.5 % (0.0-8.0); HEMATOCRIT 40.3 % (42-54); LYMPHOCYTES % (AUTO) 10.4 % (21.0-51.0); MEAN CORPUSCULAR HEMOGLOBIN 31.1 pg (27.0-33.0); MEAN CORPUSCULAR VOLUME 94.4 fL (79-99); NEUTROPHILS % (AUTO) 80.4 % (40.0-77.0); PLATELET COUNT (AUTO) 317 K/uL (130-400); RED BLOOD CELL COUNT(AUTO) 4.27 MIL/uL (4.50-6.20); RED CELL DISTRIBUTION WIDTH 11.8 % (11.0-15.5); WHITE BLOOD COUNT (AUTO) 9.9 K/uL (4.8-10.8)
[2019-07-27 05:38] LABS: ALBUMIN 2.6 g/dL (3.5-5.0); BILIRUBIN,TOTAL 0.6 mg/dL (0.2-1.0); CREATININE 0.9 mg/dL (0.5-1.5); POTASSIUM 3.5 mmol/L (3.5-5.1); TOTAL PROTEIN, SERUM 7.4 g/dL (6.0-8.3)
[2019-07-27] MEDS: POTASSIUM CHLORIDE 20 MEQ ERTAB PO PRN ×2 (05:54→10:52)
[2019-07-27] MEDS: VANCOMYCIN 750MG + NS 250 ML IV SCH ×4 (05:57→20:09)
[2019-07-27] MEDS: INSULIN HUMULIN R 100 UNIT/ML 3ML SQ SCH ×4 (06:23→21:00)
[2019-07-27 07:43] VITALS: BP 95/64
[2019-07-27] MEDS ORDERED: CHLORDIAZEPOXIDE HCL 25 MG CAP PO SCH (09:00)
[2019-07-27] MEDS: FLUOXETINE HCL 10 MG CAPSULE PO SCH (10:47)
[2019-07-27] MEDS: FOLIC ACID 1 MG TABLET PO SCH (10:47)
[2019-07-27] MEDS: THIAMINE HCL 100 MG TABLET PO SCH (10:48)
[2019-07-27] MEDS: ASPIRIN 81MG TAB.CHEW PO SCH (10:48)
[2019-07-27] MEDS: FAMOTIDINE/PF 20 MG/2 ML VIAL IV SCH (10:48)
[2019-07-27] MEDS: ENOXAPARIN SODIUM 30 MG/0.3 ML SQ SCH (10:48)
[2019-07-27] MEDS: HONEY 1 APPL/ML TUBE TP SCH (10:49)
[2019-07-27 10:55] VITALS: BP 97/64
[2019-07-27] MEDS ORDERED: VANCOMYCIN 1GM+NS 250ML 250 ML IV SCH (12:00)
[2019-07-27] MEDS: FLUCONAZOLE 100 MG TAB PO SCH (12:54)
[2019-07-27] MEDS: LACTATED RINGERS 1000ML 1,000 ML IV SCH (15:23)
[2019-07-27 15:30] VITALS: BP 103/75
[2019-07-27 20:00] VITALS: BP 92/55
[2019-07-27] MEDS: MEMANTINE HCL 5 MG TABLET PO SCH (20:08)
[2019-07-27] MEDS: MIRTAZAPINE 15 MG TABLET PO SCH (20:08)
[2019-07-27] MEDS: ATORVASTATIN CALCIUM 40 MG TABLET PO SCH (20:08)
[2019-07-27] MEDS: LORAZEPAM 2 MG/ML 1 ML VIAL IM PRN (22:34)
[2019-07-28] VITALS (25 sets, daily range): BP systolic 82–138; BP diastolic 54–75
[2019-07-28] MEDS: LACTATED RINGERS 1000ML 1,000 ML IV SCH ×2 (02:09→16:15)
[2019-07-28 05:43] LABS: BASOPHILS % (AUTO) 0.5 % (0.0-5.0); EOSINOPHILS % (AUTO) 0.4 % (0.0-8.0); HEMATOCRIT 39.7 % (42-54); LYMPHOCYTES % (AUTO) 12.4 % (21.0-51.0); MEAN CORPUSCULAR HEMOGLOBIN 30.3 pg (27.0-33.0); MEAN CORPUSCULAR VOLUME 91.9 fL (79-99); MONOCYTES % (AUTO) 7.5 % (3.0-13.0); NEUTROPHILS % (AUTO) 78.7 % (40.0-77.0); PLATELET COUNT (AUTO) 397 K/uL (130-400); RED BLOOD CELL COUNT(AUTO) 4.32 MIL/uL (4.50-6.20); RED CELL DISTRIBUTION WIDTH 11.7 % (11.0-15.5); WHITE BLOOD COUNT (AUTO) 10.1 K/uL (4.8-10.8)
[2019-07-28 06:17] LABS: ALBUMIN 2.4 g/dL (3.5-5.0); BILIRUBIN,TOTAL 0.5 mg/dL (0.2-1.0); CREATININE 0.9 mg/dL (0.5-1.5); TOTAL PROTEIN, SERUM 7.4 g/dL (6.0-8.3)
[2019-07-28] MEDS: INSULIN HUMULIN R 100 UNIT/ML 3ML SQ SCH ×4 (06:52→21:00)
[2019-07-28] MEDS ORDERED: LIDOCAINE PF 2% 5ML ABBOJECT ONE (07:56)
[2019-07-28] MEDS ORDERED: DEXAMETHASONE SOD PHOSPHATE 10MG/ML 1ML VIAL ONE (07:56)
[2019-07-28] MEDS ORDERED: MIDAZOLAM HCL 1 MG/ML 2ML VIAL ONE (07:57)
[2019-07-28] MEDS ORDERED: ONDANSETRON HCL 4 MG/2 ML VIAL ONE (07:58)
[2019-07-28] MEDS ORDERED: NEOSTIGMINE 5MG/5ML SYR IV ONE (07:58)
[2019-07-28] MEDS ORDERED: PROPOFOL 10 MG/ML 20ML VIAL IV ONE (07:58)
[2019-07-28] MEDS ORDERED: ROCURONIUM 10MG/1ML SYR 10 MG/ML ML ONE (07:58)
[2019-07-28] MEDS ORDERED: GLYCOPYRROLATE 1 MG/5 ML SYRINGE ONE (07:58)
[2019-07-28] MEDS ORDERED: FENTANYL CITRATE PF 50 MCG/1 ML 2ML VIAL ONE (07:59)
--- NOTE | 2019-07-28 08:00 | NUR ---
AM SHIFT ASSESSMENT: NPO FOR SURGERY TODAY, CONSENT SIGNED.
[2019-07-28] MEDS ORDERED: ROPIVACAINE 0.5% 5MG/ML 30ML IJ ONE (08:03)
[2019-07-28] MEDS: HONEY 1 APPL/ML TUBE TP SCH (09:00)
[2019-07-28] MEDS: FLUOXETINE HCL 10 MG CAPSULE PO SCH (09:00)
[2019-07-28] MEDS: THIAMINE HCL 100 MG TABLET PO SCH (09:00)
[2019-07-28] MEDS: ENOXAPARIN SODIUM 30 MG/0.3 ML SQ SCH (09:00)
[2019-07-28] MEDS ORDERED: CHLORDIAZEPOXIDE HCL 25 MG CAP PO SCH (09:00)
[2019-07-28] MEDS: FOLIC ACID 1 MG TABLET PO SCH (09:00)
[2019-07-28] MEDS: ASPIRIN 81MG TAB.CHEW PO SCH (09:00)
[2019-07-28] MEDS: VANCOMYCIN 750MG + NS 250 ML IV SCH ×4 (09:32→22:11)
[2019-07-28] MEDS: FAMOTIDINE/PF 20 MG/2 ML VIAL IV SCH (09:32)
--- NOTE | 2019-07-28 11:15 | NUR ---
TO OR NOW VIA HOSPITAL BED.
[2019-07-28] MEDS ORDERED: KETAMINE 50MG/ML SYRINGE 50 MG/ML DISP.SYRIN IV ONE (11:27)
--- NOTE | 2019-07-28 11:30 | NUR ---
GLUCOSE NOT CHECKED, PT. IN OR.
[2019-07-28] MEDS: FLUCONAZOLE 100 MG TAB PO SCH (12:30)
[2019-07-28] MEDS ORDERED: MORPHINE SULFATE 4 MG/1ML SYG IV PRN (14:45)
[2019-07-28] MEDS: TRAMADOL HCL 50 MG TABLET PO SCH ×2 (18:24→22:09)
[2019-07-28] MEDS: MIRTAZAPINE 15 MG TABLET PO SCH (22:08)
[2019-07-28] MEDS: MEMANTINE HCL 5 MG TABLET PO SCH (22:08)
[2019-07-28] MEDS: ATORVASTATIN CALCIUM 40 MG TABLET PO SCH (22:09)
[2019-07-29] VITALS (7 sets, daily range): BP systolic 92–152; BP diastolic 55–74
[2019-07-29] MEDS: TRAMADOL HCL 50 MG TABLET PO SCH ×4 (02:53→19:37)
--- NOTE | 2019-07-29 04:52 | NUR ---
SPOKE WITH ARLEEN PEREA OVER THE PHONE, INFORMED HER PATIENT HAS SUSTAINING 120 HR. TEMP WAS 98.1 F, BLOOD PRESSURE 135/75. PT NOT IN PAIN AT THIS POINT PT WAS COMFORTABLE SLEEPING ON BED IN NEUTRAL POSITION. MARGARET PEREA ORDERED LORESSOR 2.5 MG IV ONE TIME DOSE.
[2019-07-29] MEDS ORDERED: METOPROLOL TARTRATE 1 MG/ML 5ML VIAL IV ONE ×3 (04:55→22:35)
[2019-07-29 05:01] LABS: MEAN CORPUSCULAR HGB CONC 33.1 g/dL (32.0-36.0); MEAN CORPUSCULAR VOLUME 93.6 fL (79-99); PLATELET COUNT (AUTO) 419 K/uL (130-400); RED BLOOD CELL COUNT(AUTO) 3.74 MIL/uL (4.50-6.20); RED CELL DISTRIBUTION WIDTH 11.9 % (11.0-15.5); WHITE BLOOD COUNT (AUTO) 14.7 K/uL (4.8-10.8)
[2019-07-29 05:04] LABS: ALBUMIN 2.3 g/dL (3.5-5.0); BILIRUBIN,TOTAL 0.6 mg/dL (0.2-1.0); CREATININE 0.9 mg/dL (0.5-1.5); POTASSIUM 3.7 mmol/L (3.5-5.1); TOTAL PROTEIN, SERUM 6.5 g/dL (6.0-8.3)
[2019-07-29] MEDS: LACTATED RINGERS 1000ML 1,000 ML IV SCH ×2 (05:07→19:34)
[2019-07-29] MEDS: INSULIN HUMULIN R 100 UNIT/ML 3ML SQ SCH ×4 (05:08→21:00)
[2019-07-29 05:31] LABS: BAND NEUTROPHILS % (MANUAL) 5 % (0-2); LYMPHOCYTES % (MANUAL) 9 % (22-44); MONOCYTES % (MANUAL) 4 % (2-9); REACTIVE LYMPHOCYTES 1 % (0-0); SEGMENTED NEUTROPHILS % 81 % (40-70)
[2019-07-29 05:32] LABS: MAN.DIFF COMMENT-IMPRESSION MANUAL DIFFERENTIAL; PLATELET MORPHOLOGY COMMENT ADEQUATE
[2019-07-29] MEDS: VANCOMYCIN 750MG + NS 250 ML IV SCH ×2 (09:00)
[2019-07-29] MEDS: HONEY 1 APPL/ML TUBE TP SCH (09:00)
[2019-07-29] MEDS: THIAMINE HCL 100 MG TABLET PO SCH (10:08)
[2019-07-29] MEDS: FOLIC ACID 1 MG TABLET PO SCH (10:08)
[2019-07-29] MEDS: FLUOXETINE HCL 10 MG CAPSULE PO SCH (10:08)
[2019-07-29] MEDS: ASPIRIN 81MG TAB.CHEW PO SCH (10:08)
[2019-07-29] MEDS: ENOXAPARIN SODIUM 30 MG/0.3 ML SQ SCH (10:10)
[2019-07-29] MEDS: FAMOTIDINE/PF 20 MG/2 ML VIAL IV SCH (10:20)
[2019-07-29] MEDS ORDERED: VANCOMYCIN 1GM+NS 250ML 250 ML IV SCH (11:00)
[2019-07-29] MEDS: FLUCONAZOLE 100 MG TAB PO SCH (12:20)
[2019-07-29] MEDS: ATORVASTATIN CALCIUM 40 MG TABLET PO SCH (19:36)
[2019-07-29] MEDS: MIRTAZAPINE 15 MG TABLET PO SCH (19:36)
[2019-07-29] MEDS: MEMANTINE HCL 5 MG TABLET PO SCH (19:36)
[2019-07-29] MEDS: METOPROLOL TARTRATE 1 MG/ML 5ML VIAL IV SCH (22:45)
[2019-07-30] VITALS (24 sets, daily range): BP systolic 71–143; BP diastolic 51–90
[2019-07-30] MEDS: TRAMADOL HCL 50 MG TABLET PO SCH ×4 (02:21→20:45)
[2019-07-30] MEDS: METOPROLOL TARTRATE 1 MG/ML 5ML VIAL IV SCH ×4 (04:10→22:45)
[2019-07-30] MEDS: LACTATED RINGERS 1000ML 1,000 ML IV SCH (04:31)
[2019-07-30 04:51] LABS: BASOPHILS % (AUTO) 0.2 % (0.0-5.0); EOSINOPHILS % (AUTO) 0.1 % (0.0-8.0); HEMATOCRIT 33.2 % (42-54); LYMPHOCYTES % (AUTO) 5.2 % (21.0-51.0); MEAN CORPUSCULAR HEMOGLOBIN 30.1 pg (27.0-33.0); MEAN CORPUSCULAR HGB CONC 33.1 g/dL (32.0-36.0); MONOCYTES % (AUTO) 7.1 % (3.0-13.0); NEUTROPHILS % (AUTO) 86.7 % (40.0-77.0); PLATELET COUNT (AUTO) 395 K/uL (130-400); RED BLOOD CELL COUNT(AUTO) 3.65 MIL/uL (4.50-6.20); RED CELL DISTRIBUTION WIDTH 11.9 % (11.0-15.5); WHITE BLOOD COUNT (AUTO) 18.5 K/uL (4.8-10.8)
[2019-07-30 05:11] LABS: ALBUMIN 2.2 g/dL (3.5-5.0); BILIRUBIN,TOTAL 0.3 mg/dL (0.2-1.0); CREATININE 0.8 mg/dL (0.5-1.5); POTASSIUM 3.5 mmol/L (3.5-5.1); TOTAL PROTEIN, SERUM 6.4 g/dL (6.0-8.3)
[2019-07-30] MEDS: INSULIN HUMULIN R 100 UNIT/ML 3ML SQ SCH ×4 (06:50→21:00)
[2019-07-30] MEDS: HONEY 1 APPL/ML TUBE TP SCH (09:00)
[2019-07-30] MEDS ORDERED: LEVOFLOXACIN 500 MG/D5W 100 ML 100 ML IV SCH (10:30)
[2019-07-30] MEDS: ASPIRIN 81MG TAB.CHEW PO SCH (10:53)
[2019-07-30] MEDS: FLUOXETINE HCL 10 MG CAPSULE PO SCH (10:53)
[2019-07-30] MEDS: FAMOTIDINE/PF 20 MG/2 ML VIAL IV SCH (10:53)
[2019-07-30] MEDS: FOLIC ACID 1 MG TABLET PO SCH (10:53)
[2019-07-30] MEDS: THIAMINE HCL 100 MG TABLET PO SCH (10:53)
[2019-07-30] MEDS: ENOXAPARIN SODIUM 30 MG/0.3 ML SQ SCH (10:54)
--- NOTE | 2019-07-30 11:10 | NUR ---
NOTE INFORMED CHIARA ZIMMER THAT PATIENT HAD LOW BP IN THE 70'S. HE CONTINUES WITH CONFUSION AND LETHARGY. HOD FLAT AND STARTED BOLUS ORDERED PER CHIARA. WILL CONTINUE TO MONITOR HIS BLOOD PRESSURE. OTHER ORDERS WRITTEN.
[2019-07-30 12:57] LABS: APPEARANCE,URINE Clear (CLEAR); BILIRUBIN,URINE Negative (NEGATIVE); COLOR,URINE Yellow (YELLOW); GLUCOSE, URINE (UA) Negative (NEGATIVE); KETONES,URINE Negative (NEGATIVE); LEUKOCYTE ESTERASE ,URINE Negative (NEGATIVE); NITRATE,URINE Negative (NEGATIVE); OCCULT BLOOD,URINE Moderate (NEGATIVE); PROTEIN,URINE Negative (NEGATIVE)
[2019-07-30 13:01] LABS: BACTERIA,URINE Rare /HPF (None Seen); RBC,URINE 0-1 /HPF (0-1); SQUAMOUS EPITHELIAL CELL,UR Rare /HPF (0-2); WBC,URINE 0-1 /HPF (0-1)
[2019-07-30] MEDS: LEVOFLOXACIN 500 MG TABLET PO SCH (13:15)
[2019-07-30] MEDS ORDERED: CEFTAZIDIME PENTAHYDRATE 1 GM/VIAL IVP SCH (13:15)
[2019-07-30] MEDS: MEMANTINE HCL 5 MG TABLET PO SCH (22:09)
[2019-07-30] MEDS: MIRTAZAPINE 15 MG TABLET PO SCH (22:09)
[2019-07-30] MEDS: ATORVASTATIN CALCIUM 40 MG TABLET PO SCH (22:10)
--- NOTE | 2019-07-30 23:54 | NUR ---
Re: Temnhi 101.4 Reported at this time time by Maricruz PCP Temp 101.4, page Hospitalist community liaison Amina, called back, with orders & carried out.
[2019-07-31] MEDS ORDERED: ACETAMINOPHEN 325 MG TAB ONE (00:13)
[2019-07-31] MEDS ORDERED: ACETAMINOPHEN 325 MG TAB PO PRN (00:15)
[2019-07-31] MEDS: TRAMADOL HCL 50 MG TABLET PO SCH ×2 (02:45→08:45)
[2019-07-31 03:43] VITALS: BP 134/69
[2019-07-31] MEDS: POTASSIUM CHLORIDE 20 MEQ ERTAB PO PRN ×4 (04:02→21:07)
[2019-07-31] MEDS: LACTATED RINGERS 1000ML 1,000 ML IV SCH ×2 (04:28→10:55)
[2019-07-31] MEDS: METOPROLOL TARTRATE 1 MG/ML 5ML VIAL IV SCH ×4 (04:45→22:45)
[2019-07-31 05:43] LABS: BASOPHILS % (AUTO) 0.2 % (0.0-5.0); EOSINOPHILS % (AUTO) 0.7 % (0.0-8.0); LYMPHOCYTES % (AUTO) 6.8 % (21.0-51.0); MEAN CORPUSCULAR HEMOGLOBIN 30.9 pg (27.0-33.0); MEAN CORPUSCULAR HGB CONC 33.7 g/dL (32.0-36.0); MEAN CORPUSCULAR VOLUME 91.7 fL (79-99); NEUTROPHILS % (AUTO) 82.8 % (40.0-77.0); PLATELET COUNT (AUTO) 342 K/uL (130-400); RED BLOOD CELL COUNT(AUTO) 3.27 MIL/uL (4.50-6.20); RED CELL DISTRIBUTION WIDTH 11.9 % (11.0-15.5); WHITE BLOOD COUNT (AUTO) 13.6 K/uL (4.8-10.8)
[2019-07-31 05:57] LABS: ALBUMIN 1.8 g/dL (3.5-5.0); BILIRUBIN,TOTAL 0.4 mg/dL (0.2-1.0); CREATININE 0.8 mg/dL (0.5-1.5); POTASSIUM 3.3 mmol/L (3.5-5.1); TOTAL PROTEIN, SERUM 5.9 g/dL (6.0-8.3)
[2019-07-31] MEDS: INSULIN HUMULIN R 100 UNIT/ML 3ML SQ SCH ×4 (06:06→20:17)
--- NOTE | 2019-07-31 07:00 | NUR ---
Re: Ordered Fortaz 1gm IV Q 8 Report given to Coni FOSS to notify Dr. Lowyr as noted ordered Fortaz but was not given as pt is allergic to PCN. Pt only on Levaquin 500mg po daily, (+) temp 101.4 last night with blood c/s obtain.
[2019-07-31 07:57] VITALS: BP 113/62
[2019-07-31] MEDS: HONEY 1 APPL/ML TUBE TP SCH (09:00)
--- NOTE | 2019-07-31 09:20 | NUR ---
PATIENT UNABLE TO FOLLOW INSTRUCTIONS TO USE IS BLOWS IN IT Addendum: 07/31/19 at 5 by MAY CASTRO RN RN Amended: Links added.
[2019-07-31] MEDS ORDERED: TRAMADOL HCL 50 MG TABLET PO PRN (10:00)
[2019-07-31] MEDS: FOLIC ACID 1 MG TABLET PO SCH (10:06)
[2019-07-31] MEDS: THIAMINE HCL 100 MG TABLET PO SCH (10:06)
[2019-07-31] MEDS: FLUOXETINE HCL 10 MG CAPSULE PO SCH (10:06)
[2019-07-31] MEDS: FAMOTIDINE/PF 20 MG/2 ML VIAL IV SCH (10:06)
[2019-07-31] MEDS: ASPIRIN 81MG TAB.CHEW PO SCH (10:07)
[2019-07-31] MEDS: ENOXAPARIN SODIUM 30 MG/0.3 ML SQ SCH (10:08)
[2019-07-31 11:28] VITALS: BP 117/63
[2019-07-31] MEDS: LEVOFLOXACIN 500 MG TABLET PO SCH (14:01)
[2019-07-31 16:00] VITALS: BP 114/60
--- NOTE | 2019-07-31 19:00 | NUR ---
PATIENT STUMP DRESSED WITH ABD PAD AND KERLIX WRAPPED AND SECURED WITH TAPE
--- NOTE | 2019-07-31 20:00 | NUR ---
PN Assessment Received pt remain on 1:1 sitter, noted more aware, re-oriented to time/place. Routine assessment done, plan of care discuss, noted unable to comprehend, noted talk about random issues, LR at 75cc/hr infusing well, denies discomfort.
[2019-07-31] MEDS: MEMANTINE HCL 5 MG TABLET PO SCH (21:05)
[2019-07-31] MEDS: ATORVASTATIN CALCIUM 40 MG TABLET PO SCH (21:06)
[2019-07-31] MEDS: MIRTAZAPINE 15 MG TABLET PO SCH (21:06)
[2019-07-31 23:11] VITALS: BP 102/60
[2019-07-31 23:37] VITALS: BP 119/62
[2019-08-01] MEDS: LACTATED RINGERS 1000ML 1,000 ML IV SCH ×2 (00:15→13:42)
--- NOTE | 2019-08-01 01:33 | NUR ---
Re: restlessness/agitation Page & called back Hospitalist front desk associate Amina, made aware that pt has been very restless, attempting to get out of bed, pulling his hand mitten, yelling at this time, made aware I gave scheduled Remeron 15mg po earlier, Librium has been on hold, ordered to given Ativan 0.5mg IV x 1 dose.
[2019-08-01] MEDS ORDERED: LORAZEPAM 2 MG/ML 1 ML VIAL IVP ONE (01:45)
[2019-08-01] MEDS ORDERED: LORAZEPAM 2 MG/ML 1 ML VIAL ONE (01:53)
[2019-08-01 03:53] VITALS: BP 137/72
[2019-08-01] MEDS: METOPROLOL TARTRATE 1 MG/ML 5ML VIAL IV SCH ×4 (04:45→22:45)
[2019-08-01 05:04] LABS: BASOPHILS % (AUTO) 0.2 % (0.0-5.0); EOSINOPHILS % (AUTO) 1.6 % (0.0-8.0); HEMATOCRIT 30.7 % (42-54); LYMPHOCYTES % (AUTO) 7.9 % (21.0-51.0); MEAN CORPUSCULAR HGB CONC 32.6 g/dL (32.0-36.0); MEAN CORPUSCULAR VOLUME 92.2 fL (79-99); MONOCYTES % (AUTO) 7.1 % (3.0-13.0); NEUTROPHILS % (AUTO) 82.8 % (40.0-77.0); PLATELET COUNT (AUTO) 383 K/uL (130-400); RED BLOOD CELL COUNT(AUTO) 3.33 MIL/uL (4.50-6.20); WHITE BLOOD COUNT (AUTO) 10.9 K/uL (4.8-10.8)
[2019-08-01 05:22] LABS: ALBUMIN 1.9 g/dL (3.5-5.0); BILIRUBIN,TOTAL 0.3 mg/dL (0.2-1.0); CREATININE 0.8 mg/dL (0.5-1.5); POTASSIUM 3.8 mmol/L (3.5-5.1); TOTAL PROTEIN, SERUM 6.2 g/dL (6.0-8.3)
[2019-08-01] MEDS: INSULIN HUMULIN R 100 UNIT/ML 3ML SQ SCH ×4 (07:30→21:00)
[2019-08-01 08:00] VITALS: BP 107/46
[2019-08-01] MEDS: HONEY 1 APPL/ML TUBE TP SCH (09:00)
--- NOTE | 2019-08-01 09:30 | NUR ---
PATIENT IS UNABLE TO FOLLOW INSTRUCTION FOR IS HE JUST BLOWS AIR INTO IT Addendum: 08/01/19 at 1410 by MAY CASTRO RN RN Amended: Links added.
[2019-08-01] MEDS: FAMOTIDINE/PF 20 MG/2 ML VIAL IV SCH (10:32)
[2019-08-01] MEDS: ASPIRIN 81MG TAB.CHEW PO SCH (10:33)
[2019-08-01] MEDS: ENOXAPARIN SODIUM 30 MG/0.3 ML SQ SCH (10:33)
[2019-08-01] MEDS: THIAMINE HCL 100 MG TABLET PO SCH (10:34)
[2019-08-01] MEDS: FOLIC ACID 1 MG TABLET PO SCH (10:34)
[2019-08-01] MEDS: FLUOXETINE HCL 10 MG CAPSULE PO SCH (10:35)
--- NOTE | 2019-08-01 11:15 | NUR ---
DR PEREIRA ON ROUNDED ON PATIENT PER HIS SERVICE PATINE MAY BE DISCHARGE AND FOLLOW-UP WITH HIM IN 2 WEEKS.
[2019-08-01 11:42] VITALS: BP 107/64
[2019-08-01] MEDS: LEVOFLOXACIN 500 MG TABLET PO SCH (13:42)
[2019-08-01 15:33] VITALS: BP 102/48
[2019-08-01 20:00] VITALS: BP 98/56
[2019-08-01] MEDS: MEMANTINE HCL 5 MG TABLET PO SCH (20:51)
[2019-08-01] MEDS: ATORVASTATIN CALCIUM 40 MG TABLET PO SCH (20:51)
[2019-08-01] MEDS: MIRTAZAPINE 15 MG TABLET PO SCH (20:51)
[2019-08-02] VITALS: BP 110/58
[2019-08-02] MEDS: LACTATED RINGERS 1000ML 1,000 ML IV SCH ×2 (03:49→18:43)
[2019-08-02 04:00] VITALS: BP 107/69
[2019-08-02 07:30] VITALS: BP 121/65
[2019-08-02] MEDS: INSULIN HUMULIN R 100 UNIT/ML 3ML SQ SCH ×4 (07:30→21:00)
[2019-08-02 08:47] LABS: BASOPHILS % (AUTO) 0.2 % (0.0-5.0); EOSINOPHILS % (AUTO) 1.7 % (0.0-8.0); HEMATOCRIT 31.2 % (42-54); MEAN CORPUSCULAR HEMOGLOBIN 30.1 pg (27.0-33.0); MEAN CORPUSCULAR HGB CONC 32.7 g/dL (32.0-36.0); MONOCYTES % (AUTO) 8.4 % (3.0-13.0); NEUTROPHILS % (AUTO) 78.1 % (40.0-77.0); PLATELET COUNT (AUTO) 413 K/uL (130-400); RED BLOOD CELL COUNT(AUTO) 3.39 MIL/uL (4.50-6.20); RED CELL DISTRIBUTION WIDTH 11.9 % (11.0-15.5); WHITE BLOOD COUNT (AUTO) 9.1 K/uL (4.8-10.8)
[2019-08-02] MEDS: HONEY 1 APPL/ML TUBE TP SCH (09:00)
--- NOTE | 2019-08-02 09:30 | NUR ---
HERE FOR REORDER NEURO CONSULTATION .
[2019-08-02 09:38] LABS: CREATININE 0.9 mg/dL (0.5-1.5); POTASSIUM 3.5 mmol/L (3.5-5.1)
--- NOTE | 2019-08-02 10:35 | NUR ---
DR. ANGELIA GREENE . UPDATE OF PT STATUS ,CONT WITH CARE , NO CHANGES
[2019-08-02] MEDS: ENOXAPARIN SODIUM 30 MG/0.3 ML SQ SCH (11:29)
[2019-08-02] MEDS: FLUOXETINE HCL 10 MG CAPSULE PO SCH (11:30)
[2019-08-02] MEDS: THIAMINE HCL 100 MG TABLET PO SCH (11:30)
[2019-08-02] MEDS: FOLIC ACID 1 MG TABLET PO SCH (11:30)
[2019-08-02] MEDS: ASPIRIN 81MG TAB.CHEW PO SCH (11:30)
[2019-08-02] MEDS: FAMOTIDINE/PF 20 MG/2 ML VIAL IV SCH (11:30)
[2019-08-02] MEDS: LEVOFLOXACIN 500 MG TABLET PO SCH (11:32)
--- NOTE | 2019-08-02 17:30 | NUR ---
PT BACK FROM THE CTSCAN WITH RESULTS PENDING,
[2019-08-02 18:50] VITALS: BP 104/65
[2019-08-02 20:00] VITALS: BP 88/58
[2019-08-02] MEDS: MEMANTINE HCL 5 MG TABLET PO SCH (21:11)
[2019-08-02] MEDS: ATORVASTATIN CALCIUM 40 MG TABLET PO SCH (21:11)
[2019-08-02] MEDS: MIRTAZAPINE 15 MG TABLET PO SCH (21:11)
[2019-08-03] VITALS: BP 86/54
[2019-08-03 04:00] VITALS: BP 98/56
--- NOTE | 2019-08-03 04:45 | NUR ---
PATIENT INCREASINGLY RESTLESS, FEELS URGE TO VOID, BUT STILL UNABLE TO VOID ON HIS OWN. BLADDER SCAN NOTES GREATER THAN 586ML URINE RESIDUAL. 16FR F/C RE-INSERTED, OBTAINED 600CC URINE.
[2019-08-03] MEDS: LACTATED RINGERS 1000ML 1,000 ML IV SCH ×2 (05:41→18:46)
[2019-08-03] MEDS: INSULIN HUMULIN R 100 UNIT/ML 3ML SQ SCH ×4 (05:42→21:00)
[2019-08-03 06:51] LABS: THYROID STIMULATING HORMONE 2.5 uIU/mL (0.36-3.74)
[2019-08-03 08:00] VITALS: BP 100/60
[2019-08-03] MEDS: THIAMINE HCL 100 MG TABLET PO SCH (10:02)
[2019-08-03] MEDS: FLUOXETINE HCL 10 MG CAPSULE PO SCH (10:02)
[2019-08-03] MEDS: FAMOTIDINE/PF 20 MG/2 ML VIAL IV SCH (10:03)
[2019-08-03] MEDS: ASPIRIN 81MG TAB.CHEW PO SCH (10:03)
[2019-08-03] MEDS: FOLIC ACID 1 MG TABLET PO SCH (10:03)
[2019-08-03] MEDS: ENOXAPARIN SODIUM 30 MG/0.3 ML SQ SCH (10:03)
[2019-08-03] MEDS: HONEY 1 APPL/ML TUBE TP SCH (10:04)
[2019-08-03 12:00] VITALS: BP 80/63
--- NOTE | 2019-08-03 12:39 | NUR ---
DR. DE DIOS RECEIVED CALL FROM DR. DE DIOS REGARDING CONSULT. ADVISED PATIENT WITH URINARY RETENTION AND CARLS[facility]. DR. DE DIOS ADVISED OK TO SEND HOME WITH [facility] AND HE CAN FOLLOW UP ONCE DISCHARGED.
[2019-08-03] MEDS: CYANOCOBALAMIN (VITAMIN B-12) 1,000 MCG TABLET PO SCH (13:17)
[2019-08-03] MEDS: LEVOFLOXACIN 500 MG TABLET PO SCH (13:17)
[2019-08-03 16:00] VITALS: BP 78/57
[2019-08-03 20:00] VITALS: BP 119/60
[2019-08-03] MEDS: ATORVASTATIN CALCIUM 40 MG TABLET PO SCH (21:53)
[2019-08-03] MEDS: MIRTAZAPINE 15 MG TABLET PO SCH (21:53)
[2019-08-03] MEDS: MEMANTINE HCL 5 MG TABLET PO SCH (21:53)
[2019-08-04] VITALS (7 sets, daily range): BP systolic 99–125; BP diastolic 53–67
[2019-08-04 05:03] LABS: BASOPHILS % (AUTO) 0.6 % (0.0-5.0); EOSINOPHILS % (AUTO) 2.2 % (0.0-8.0); LYMPHOCYTES % (AUTO) 12.2 % (21.0-51.0); MEAN CORPUSCULAR HEMOGLOBIN 29.8 pg (27.0-33.0); MEAN CORPUSCULAR HGB CONC 31.7 g/dL (32.0-36.0); MONOCYTES % (AUTO) 6.8 % (3.0-13.0); NEUTROPHILS % (AUTO) 77.6 % (40.0-77.0); PLATELET COUNT (AUTO) 459 K/uL (130-400); RED BLOOD CELL COUNT(AUTO) 3.83 MIL/uL (4.50-6.20); RED CELL DISTRIBUTION WIDTH 11.9 % (11.0-15.5)
[2019-08-04 05:17] LABS: CREATININE 0.9 mg/dL (0.5-1.5)
[2019-08-04] MEDS: INSULIN HUMULIN R 100 UNIT/ML 3ML SQ SCH ×4 (06:33→21:00)
[2019-08-04] MEDS: FOLIC ACID 1 MG TABLET PO SCH (10:38)
[2019-08-04] MEDS: ENOXAPARIN SODIUM 30 MG/0.3 ML SQ SCH (10:38)
[2019-08-04] MEDS: CYANOCOBALAMIN (VITAMIN B-12) 1,000 MCG TABLET PO SCH (10:38)
[2019-08-04] MEDS: FLUOXETINE HCL 10 MG CAPSULE PO SCH (10:38)
[2019-08-04] MEDS: ASPIRIN 81MG TAB.CHEW PO SCH (10:39)
[2019-08-04] MEDS: FAMOTIDINE/PF 20 MG/2 ML VIAL IV SCH (10:39)
[2019-08-04] MEDS: HONEY 1 APPL/ML TUBE TP SCH (10:39)
[2019-08-04] MEDS: THIAMINE HCL 100 MG TABLET PO SCH (10:45)
--- NOTE | 2019-08-04 10:53 | NUR ---
CM Note: POC CM spoke to spouse regarding pt POC. Currently pt is selfpay, [facility] is assisting w/emergency medicaid. Spouse will coordinate w/family membergs regarding getting wheelchair/walker privately. Ashlyn w/DAD aware will make contact w/pt spouse and will follow up with pt once discharge home for possible willi DME and provider. DC plan to home once stable. Per Dr Michelle dcp for tomorrow if pt stable. Primary nurse aware. CM to cont to follow up.
[2019-08-04] MEDS: LEVOFLOXACIN 500 MG TABLET PO SCH (13:41)
--- NOTE | 2019-08-04 13:53 | NUR ---
RD FOLLOW UP NOTE PT S/P AKA. IMPROVED PO INTAKE WITH REGULAR DIET ORDER IN PLACE. NOTED LBM 07/31/19; REC TO MONITOR FOR CONSTIPATION RD REC TO CONTINUE POC. RD TO CONTINUE TO MONITOR. PLEASE NOTIFY ADDITIONAL NUTRITIONAL CONCERNS ARISE. Addendum: 08/04/19 at [address] Amended: Links added.
[2019-08-04] MEDS: SENNOSIDES 8.6 MG TABLET PO SCH (20:42)
[2019-08-04] MEDS: ATORVASTATIN CALCIUM 40 MG TABLET PO SCH (20:42)
[2019-08-04] MEDS: MEMANTINE HCL 5 MG TABLET PO SCH (20:42)
[2019-08-05 04:00] VITALS: BP 107/58
[2019-08-05 05:09] LABS: CREATININE 0.9 mg/dL (0.5-1.5); MAGNESIUM 1.7 mg/dL (1.80-2.40); POTASSIUM 3.7 mmol/L (3.5-5.1)
[2019-08-05] MEDS: INSULIN HUMULIN R 100 UNIT/ML 3ML SQ SCH ×4 (05:40→21:00)
[2019-08-05] MEDS: MAGNESIUM 2GM PREMIX 50ML 50 ML IV PRN (06:08)
[2019-08-05 08:12] VITALS: BP 111/69
[2019-08-05] MEDS: CYANOCOBALAMIN (VITAMIN B-12) 1,000 MCG TABLET PO SCH (09:00)
[2019-08-05] MEDS: THIAMINE HCL 100 MG TABLET PO SCH (09:00)
[2019-08-05] MEDS: SENNOSIDES 8.6 MG TABLET PO SCH ×2 (09:00→21:30)
[2019-08-05] MEDS: ASPIRIN 81MG TAB.CHEW PO SCH (09:00)
[2019-08-05] MEDS: DOCUSATE SODIUM 100 MG CAP PO SCH (09:00)
[2019-08-05] MEDS: HONEY 1 APPL/ML TUBE TP SCH (09:00)
[2019-08-05] MEDS: PAROXETINE HCL 20 MG TABLET PO SCH (09:00)
[2019-08-05] MEDS: FAMOTIDINE/PF 20 MG/2 ML VIAL IV SCH (09:00)
[2019-08-05] MEDS: ENOXAPARIN SODIUM 30 MG/0.3 ML SQ SCH (09:00)
[2019-08-05] MEDS: FOLIC ACID 1 MG TABLET PO SCH (09:00)
[2019-08-05 12:02] VITALS: BP 103/57
--- NOTE | 2019-08-05 12:11 | NUR ---
ASLEEP Patient has been asleep since this AM. He ate everything for breakfast but fell asleep right away. At this time he has not had lunch because he is asleep and does not want to wake up. Will administer AM medicate during lunch. When he was awake for breakfast he attempted to pull his Ku, and was bitting the mittens; he thought nurse in [place] was his mother. At this time, continues resting.
[2019-08-05] MEDS: LEVOFLOXACIN 500 MG TABLET PO SCH (13:15)
[2019-08-05 16:01] VITALS: BP 112/59
--- NOTE | 2019-08-05 18:15 | NUR ---
DR. SCHMIDT Psychiatrist making rounds. He was informed patient mostly slept all day. At this time awake but refuses all medications. No other issues.
[2019-08-05 20:22] VITALS: BP 108/64
[2019-08-05] MEDS: ATORVASTATIN CALCIUM 40 MG TABLET PO SCH (21:30)
[2019-08-05] MEDS: MEMANTINE HCL 5 MG TABLET PO SCH (21:30)
[2019-08-05 23:20] VITALS: BP 116/58
[2019-08-06 03:20] VITALS: BP 106/68
[2019-08-06 05:52] LABS: CREATININE 0.9 mg/dL (0.5-1.5); MAGNESIUM 1.9 mg/dL (1.80-2.40); POTASSIUM 3.9 mmol/L (3.5-5.1)
[2019-08-06 07:16] VITALS: BP 115/64
[2019-08-06] MEDS: INSULIN HUMULIN R 100 UNIT/ML 3ML SQ SCH ×4 (07:30→21:00)
[2019-08-06] MEDS: SENNOSIDES 8.6 MG TABLET PO SCH ×2 (08:59→22:19)
[2019-08-06] MEDS: PAROXETINE HCL 20 MG TABLET PO SCH (08:59)
[2019-08-06] MEDS: THIAMINE HCL 100 MG TABLET PO SCH (08:59)
[2019-08-06] MEDS: ASPIRIN 81MG TAB.CHEW PO SCH (08:59)
[2019-08-06] MEDS: DOCUSATE SODIUM 100 MG CAP PO SCH (08:59)
[2019-08-06] MEDS: FAMOTIDINE/PF 20 MG/2 ML VIAL IV SCH (08:59)
[2019-08-06] MEDS: FOLIC ACID 1 MG TABLET PO SCH (08:59)
[2019-08-06] MEDS: CYANOCOBALAMIN (VITAMIN B-12) 1,000 MCG TABLET PO SCH (08:59)
[2019-08-06] MEDS: HONEY 1 APPL/ML TUBE TP SCH (09:00)
[2019-08-06] MEDS: ENOXAPARIN SODIUM 30 MG/0.3 ML SQ SCH (09:00)
[2019-08-06 10:33] VITALS: BP 111/56
[2019-08-06 15:37] VITALS: BP 114/56
[2019-08-06] MEDS: LEVOFLOXACIN 500 MG TABLET PO SCH (17:29)
[2019-08-06] MEDS: MEMANTINE HCL 5 MG TABLET PO SCH (22:18)
[2019-08-06] MEDS: ATORVASTATIN CALCIUM 40 MG TABLET PO SCH (22:18)
[2019-08-06 23:57] VITALS: BP 128/99
[2019-08-06 23:58] VITALS: BP 115/60
[2019-08-07 03:48] VITALS: BP 101/60
[2019-08-07] MEDS: INSULIN HUMULIN R 100 UNIT/ML 3ML SQ SCH ×4 (06:33→21:00)
[2019-08-07 07:15] VITALS: BP 111/64
[2019-08-07] MEDS: SENNOSIDES 8.6 MG TABLET PO SCH ×2 (10:22→21:16)
[2019-08-07] MEDS: DOCUSATE SODIUM 100 MG CAP PO SCH (10:22)
[2019-08-07] MEDS: PAROXETINE HCL 20 MG TABLET PO SCH (10:23)
[2019-08-07] MEDS: THIAMINE HCL 100 MG TABLET PO SCH (10:23)
[2019-08-07] MEDS: CYANOCOBALAMIN (VITAMIN B-12) 1,000 MCG TABLET PO SCH (10:23)
[2019-08-07] MEDS: FOLIC ACID 1 MG TABLET PO SCH (10:23)
[2019-08-07] MEDS: ASPIRIN 81MG TAB.CHEW PO SCH (10:24)
[2019-08-07] MEDS: FAMOTIDINE/PF 20 MG/2 ML VIAL IV SCH (10:24)
[2019-08-07] MEDS: ENOXAPARIN SODIUM 30 MG/0.3 ML SQ SCH (10:35)
[2019-08-07 12:00] VITALS: BP 113/61
[2019-08-07] MEDS: LEVOFLOXACIN 500 MG TABLET PO SCH (13:46)
[2019-08-07] MEDS: HONEY 1 APPL/ML TUBE TP SCH (15:17)
[2019-08-07 16:00] VITALS: BP 105/59
[2019-08-07 19:15] VITALS: BP 106/62
[2019-08-07] MEDS: MEMANTINE HCL 5 MG TABLET PO SCH (21:16)
[2019-08-07] MEDS: ATORVASTATIN CALCIUM 40 MG TABLET PO SCH (21:16)
[2019-08-07 23:05] VITALS: BP 142/75
[2019-08-08 03:00] VITALS: BP 128/70
[2019-08-08] MEDS: INSULIN HUMULIN R 100 UNIT/ML 3ML SQ SCH ×4 (06:28→21:00)
[2019-08-08 07:23] VITALS: BP 139/65
[2019-08-08] MEDS: SENNOSIDES 8.6 MG TABLET PO SCH ×2 (09:00→22:51)
[2019-08-08] MEDS: DOCUSATE SODIUM 100 MG CAP PO SCH (10:18)
[2019-08-08] MEDS: PAROXETINE HCL 20 MG TABLET PO SCH (10:18)
[2019-08-08] MEDS: THIAMINE HCL 100 MG TABLET PO SCH (10:18)
[2019-08-08] MEDS: ASPIRIN 81MG TAB.CHEW PO SCH (10:18)
[2019-08-08] MEDS: FAMOTIDINE/PF 20 MG/2 ML VIAL IV SCH (10:18)
[2019-08-08] MEDS: CYANOCOBALAMIN (VITAMIN B-12) 1,000 MCG TABLET PO SCH (10:18)
[2019-08-08] MEDS: FOLIC ACID 1 MG TABLET PO SCH (10:18)
[2019-08-08] MEDS: ENOXAPARIN SODIUM 30 MG/0.3 ML SQ SCH (10:19)
[2019-08-08] MEDS: HONEY 1 APPL/ML TUBE TP SCH (10:19)
[2019-08-08 12:00] VITALS: BP 111/64
[2019-08-08] MEDS: LEVOFLOXACIN 500 MG TABLET PO SCH (13:20)
[2019-08-08 16:00] VITALS: BP 107/62
[2019-08-08 19:00] VITALS: BP 109/62
[2019-08-08] MEDS: ATORVASTATIN CALCIUM 40 MG TABLET PO SCH (22:50)
[2019-08-08] MEDS: MEMANTINE HCL 5 MG TABLET PO SCH (22:51)
[2019-08-08 23:51] VITALS: BP 122/66
[2019-08-09 04:00] VITALS: BP 122/65
[2019-08-09] MEDS: INSULIN HUMULIN R 100 UNIT/ML 3ML SQ SCH ×3 (06:24→21:00)
[2019-08-09 08:00] VITALS: BP 101/52
[2019-08-09] MEDS: SENNOSIDES 8.6 MG TABLET PO SCH ×2 (09:00→21:12)
[2019-08-09] MEDS: HONEY 1 APPL/ML TUBE TP SCH (09:00)
--- NOTE | 2019-08-09 10:22 | NUR ---
Will ask Nursing to notify MD if we can DC bilateral mittens so PT can start to getting out of bed, sit to stand holding on to standard walker for standing balance and transition for wheelchair transfer as tolerated.Recommending a wheelchair with attached seat belt for patient's safety prior to DC.Once the recommended wheelchair delivered Therapist can start on wheelchair mobility while patient still in the hospital.Notified PRUDENCE Vieyracontinuous drier operator Nurse regarding this matter. Addendum: 08/09/19 at 1030 by ERIN MEDEIROS, PT PT Amended: Links added.
[2019-08-09] MEDS: FAMOTIDINE/PF 20 MG/2 ML VIAL IV SCH (10:28)
[2019-08-09] MEDS: ENOXAPARIN SODIUM 30 MG/0.3 ML SQ SCH (10:30)
[2019-08-09] MEDS: THIAMINE HCL 100 MG TABLET PO SCH (10:30)
[2019-08-09] MEDS: CYANOCOBALAMIN (VITAMIN B-12) 1,000 MCG TABLET PO SCH (10:31)
[2019-08-09] MEDS: PAROXETINE HCL 20 MG TABLET PO SCH (10:31)
[2019-08-09] MEDS: ASPIRIN 81MG TAB.CHEW PO SCH (10:32)
[2019-08-09] MEDS: FOLIC ACID 1 MG TABLET PO SCH (10:32)
[2019-08-09] MEDS: DOCUSATE SODIUM 100 MG CAP PO SCH (10:32)
[2019-08-09 11:15] VITALS: BP 114/62
[2019-08-09 16:00] VITALS: BP 103/58
[2019-08-09 19:00] VITALS: BP 109/50
[2019-08-09] MEDS: ATORVASTATIN CALCIUM 40 MG TABLET PO SCH (21:12)
[2019-08-09] MEDS: MEMANTINE HCL 5 MG TABLET PO SCH (21:12)
[2019-08-09 23:16] VITALS: BP 122/80
[2019-08-10 03:30] VITALS: BP 113/64
[2019-08-10 06:00] LABS: BASOPHILS % (AUTO) 0.3 % (0.0-5.0); EOSINOPHILS % (AUTO) 1.5 % (0.0-8.0); HEMATOCRIT 35.5 % (42-54); MEAN CORPUSCULAR HEMOGLOBIN 29.4 pg (27.0-33.0); MEAN CORPUSCULAR HGB CONC 31.3 g/dL (32.0-36.0); MEAN CORPUSCULAR VOLUME 93.9 fL (79-99); MONOCYTES % (AUTO) 5.4 % (3.0-13.0); NEUTROPHILS % (AUTO) 84.2 % (40.0-77.0); PLATELET COUNT (AUTO) 526 K/uL (130-400); RED BLOOD CELL COUNT(AUTO) 3.78 MIL/uL (4.50-6.20); RED CELL DISTRIBUTION WIDTH 12.5 % (11.0-15.5); WHITE BLOOD COUNT (AUTO) 11.5 K/uL (4.8-10.8)
[2019-08-10 06:20] LABS: ALBUMIN 2.5 g/dL (3.5-5.0); BILIRUBIN,TOTAL 0.4 mg/dL (0.2-1.0); CREATININE 0.9 mg/dL (0.5-1.5); POTASSIUM 3.2 mmol/L (3.5-5.1); TOTAL PROTEIN, SERUM 6.9 g/dL (6.0-8.3)
[2019-08-10] MEDS: POTASSIUM CHLORIDE 10% ELIXIR 20 MEQ/15 ML UDCUP PO PRN ×3 (06:31→15:36)
[2019-08-10] MEDS: INSULIN HUMULIN R 100 UNIT/ML 3ML SQ SCH ×3 (06:32→16:30)
[2019-08-10 08:00] VITALS: BP 100/58
[2019-08-10] MEDS: DOCUSATE SODIUM 100 MG CAP PO SCH (09:00)
[2019-08-10] MEDS: HONEY 1 APPL/ML TUBE TP SCH ×2 (09:00→17:15)
[2019-08-10] MEDS: FAMOTIDINE/PF 20 MG/2 ML VIAL IV SCH (09:39)
[2019-08-10] MEDS: ASPIRIN 81MG TAB.CHEW PO SCH (09:40)
[2019-08-10] MEDS: SENNOSIDES 8.6 MG TABLET PO SCH (09:41)
[2019-08-10] MEDS: CYANOCOBALAMIN (VITAMIN B-12) 1,000 MCG TABLET PO SCH (09:41)
[2019-08-10] MEDS: THIAMINE HCL 100 MG TABLET PO SCH (09:41)
[2019-08-10] MEDS: PAROXETINE HCL 20 MG TABLET PO SCH (09:41)
[2019-08-10] MEDS: FOLIC ACID 1 MG TABLET PO SCH (09:41)
[2019-08-10] MEDS: ENOXAPARIN SODIUM 30 MG/0.3 ML SQ SCH (09:45)
[2019-08-10 11:45] VITALS: BP 131/52
[2019-08-10] MEDS ORDERED: ASPI-1005 PO (12:09)
[2019-08-10] MEDS ORDERED: MEMA5TAB PO (12:09)
[2019-08-10] MEDS ORDERED: ATOR40TA69 PO (12:09)
[2019-08-10 16:00] VITALS: BP 98/65
--- NOTE | 2019-08-10 16:58 | NUR ---
ATTEMPTED TO CALL PATIENTS 4 TIMES WITH NO ANSWER, LEFT VOICEMAIL, ATTEMPTING TO GIVE REPORT TO HER AND CONFIRM THAT SHE IS HOME TO TRANSFER PATIENT. CONTINUITY MANAGER FATUMA ALSO ATTEMPTED TO CALL , NO ANSWER
--- NOTE | 2019-08-10 17:25 | NUR ---
ADVISED BY MAUREEN ALTMAN THAT COVID FORM WAS NOT REC'D. (COVID FORM WAS SENT AT 1551 TO MAUREEN WAITE) ADVISED BY THAT AUTH WAS NOT SENT BECAUSE PEG INFORMATION WAS NOT REC'D SO AUTH WAS NOT SUBMITTED SHAUN MISUNDERSTOOD EARLIER CONVERSATION REGARDING ACCEPTANCE TO FACILITY. Addendum: 08/10/19 at 1727 by TREVA BILL RN CM Amended: Links added. Addendum: 08/10/19 at 1729 by TREVA BILL RN CM WRONG CHART
--- NOTE | 2019-08-10 17:28 | NUR ---
NOTE AT 1725 ON WRONG PATIENT
[2019-08-10 19:25] VITALS: BP 91/62
--- NOTE | 2019-08-10 22:10 | NUR ---
[facility] HERE TO TRANSFER PT TO HOME. PT EXHIBITS NO DISTRESS AT THIS TIME
== END 2019-08-10 22:04 | disposition home or self-care (01) | DRG 853 ==
LOC: EDH 14:36 → EDHIP 14:37 → 3BH 07-14 03:17 → 3CH 07-16 05:00 → 3DH 08-05 21:04 → 3AH 08-07 18:48
PROVIDERS: ADMIT Hospitalist; ATTEND Hospitalist
PROC: 0Y6D0Z3 Detachment at Left Upper Leg, Low, Open Approach (ICD-10-PCS; principal; 2019-07-28 11:28)
DX: A41.9 Sepsis, unspecified organism (principal); G92 Toxic encephalopathy; L03.116 Cellulitis of left lower limb; L97.329 Non-pressure chronic ulcer of left ankle with unspecified severity; E11.52 Type 2 diabetes mellitus with diabetic peripheral angiopathy with gangrene; I96 Gangrene, not elsewhere classified; F05 Delirium due to known physiological condition; M86.8X7 Other osteomyelitis, ankle and foot; F17.210 Nicotine dependence, cigarettes, uncomplicated; I49.3 Ventricular premature depolarization; E11.42 Type 2 diabetes mellitus with diabetic polyneuropathy; F03.90 Unspecified dementia, unspecified severity, without behavioral disturbance, psychotic disturbance, mood disturbance, and anxiety; E87.6 Hypokalemia; I10 Essential (primary) hypertension; E11.621 Type 2 diabetes mellitus with foot ulcer; E11.622 Type 2 diabetes mellitus with other skin ulcer; E11.69 Type 2 diabetes mellitus with other specified complication; E78.5 Hyperlipidemia, unspecified; F39 Unspecified mood [affective] disorder; L97.529 Non-pressure chronic ulcer of other part of left foot with unspecified severity; M85.80 Other specified disorders of bone density and structure, unspecified site; Z74.01 Bed confinement status; Z88.0 Allergy status to penicillin; E53.8 Deficiency of other specified B group vitamins; R33.9 Retention of urine, unspecified
CPT/HCPCS: 36415; 70450; 71045; 73590; 80048; 80053; 80202; 80305; 81001; 82140; 82550; 82607; 82948; 83036; 83605; 83735; 83874; 83880; 84145; 84439; 84443; 84484; 85025; 85610; 85730; 86592; 87040; 87070; 87076; 87077; 87088; 87186; 93005; 93306; 93356; 93925; 93970; 97039; G0378; G0480; J1100; J1650; J1815; J1956; J2001; J2060; J2250; J2270; J2405; J2704; J2710; J2795; J3010; J3370; J3475; J3480; J3490; J7030; J7120; L1830; Q0163